=== PATIENT | female | born 1970 | race Caucasian/White ===

== ENCOUNTER 2020-08-07 13:43 | Outpatient (REF) | payer OTHER, SELFPAY ==
[2020-08-07 16:03] LABS: TSH reflex Free T4 1.18 mIU/mL (0.32-4.0)
[2020-08-08 03:59] LABS: Syphilis Screen Nonreactive (Nonreactive)
[2020-08-08 04:32] LABS: ~HepC Num1 0.06 S/CO (0.00-0.79); ~Hepatitis C Antibody Nonreactive (Nonreactive)
[2020-08-08 04:36] LABS: HBsAGNum1 0.11 S/CO (0.00-0.99); HIV AB/AG Nonreactive (Nonreactive); HIV Num 1 0.24 S/CO (0.00-0.99); Hepatitis B Surface Antigen Negative (Negative)
[2020-08-08 10:16] LABS: CT PCR NOT DETECTED (Not Detect.); NG PCR NOT DETECTED (Not Detect.)
[2020-08-08 10:26] LABS: Follicle Stimulating Hormone 20.5 mIU/mL
[2020-08-14 02:17] LABS: HPV 16 RNA NOT DETECTED (NOT DETECTED); HPV mRNA E6/E7 rflx Detected (Not Detected)
== END 2020-08-07 13:44 | disposition home or self-care (01) ==
LOC: HO.LAB 13:43
PROVIDERS: PCP Internal Medicine; Visit Provider Advanced Practice Midwife
DX: Z01.419 Encounter for gynecological examination (general) (routine) without abnormal findings (principal); Z87.42 Personal history of other diseases of the female genital tract; Z20.2 Contact with and (suspected) exposure to infections with a predominantly sexual mode of transmission
CPT/HCPCS: 83001; 84443; 86780; 86803; 87340; 87389; 87491; 87591; 87624; 87625; 88141; 88142

== ENCOUNTER 2020-09-04 14:11 | Outpatient (REF) | payer OTHER, SELFPAY | END 2020-09-04 14:12 | disposition home or self-care (01) | LOC: HO.LAB 14:11 | PROVIDERS: Visit Provider Internal Medicine | DX: Z20.828 Contact with and (suspected) exposure to other viral communicable diseases (principal) | CPT/HCPCS: C9803; U0003 ==

== ENCOUNTER 2020-09-16 15:46 | Outpatient (REF) | payer OTHER, SELFPAY ==
--- NOTE | 2020-09-16 | MM_ITS ---
EXAMINATION: MM SCREENING DIGITAL BREAST TOMOSYNTHESIS, BILATERAL CLINICAL INFORMATION: Screening. Asymptomatic. The lifetime risk of breast cancer based on the Tyrer-Cuzick Model is 7%. COMPARISON: Mammography: 05/03/2018, 08/17/2016 TECHNIQUE: Digital breast tomosynthesis is performed in both the craniocaudal and mediolateral oblique views along with computer-aided detection (CAD). Synthesized 2D images are generated from the tomosynthesis. FINDINGS: There are scattered areas of fibroglandular density (ACR BI-RADS breast composition Category b). There are no significant masses, abnormal calcifications, or other abnormalities. Parenchymal pattern is similar to prior study. No significant changes. MM/MM tomosynthesis screening BI IMPRESSION: No mammographic evidence of malignancy. ASSESSMENT: BI-RADS 1: Negative RECOMMENDATION: Routine annual mammography screening. This patient's information was entered into a reminder system with a target due date for their next mammogram.
== END 2020-09-16 15:47 | disposition home or self-care (01) ==
LOC: HO.MAMMO 15:46
PROVIDERS: PCP Internal Medicine; Visit Provider Advanced Practice Midwife
DX: Z12.31 Encounter for screening mammogram for malignant neoplasm of breast (principal)
CPT/HCPCS: 77063; 77067

== ENCOUNTER 2021-01-20 12:35 | Outpatient (REF) | payer OTHER, SELFPAY ==
[2021-01-20 13:49] LABS: HCG Quantitative < 2 mIU/mL
== END 2021-01-20 12:36 | disposition home or self-care (01) ==
LOC: HO.LAB 12:35
PROVIDERS: PCP Internal Medicine; Visit Provider Internal Medicine
DX: N92.6 Irregular menstruation, unspecified (principal)
CPT/HCPCS: 36415; 84702

== ENCOUNTER 2021-02-10 11:07 | Outpatient (REF) | payer OTHER, SELFPAY ==
--- NOTE | ~2021-02-10 | XR_ITS ---
EXAMINATION: XR SACRUM AND COCCYX CLINICAL INFORMATION: Sacrococcygeal disorder. COMPARISON: None TECHNIQUE: 2 views of the sacrum and 2 views of the coccyx were obtained. FINDINGS: There is normal symmetrical SI joint space with sclerosis of right SI joint iliac side. There is no visible fracture, dislocation or lytic process in the sacrum and/or coccyx. There is mild anterior angulation coccyx, likely old. No lytic or sclerotic process involving the sacrum and coccyx. The prevertebral and posterior portable vertebral soft tissues are normal. XR/XR sacrum coccyx min 2V IMPRESSION: Mild sclerosis of the right SI joint suggesting sacroiliitis. Unremarkable sacrum and coccyx performed.
[2021-02-10 12:25] LABS: Alanine Aminotransferase 25 U/L (0-31); Alkaline Phosphatase 111 U/L (39-117); Anion Gap 13 (12-20); Aspartate Amino Transferase 19 U/L (5-31); Bilirubin Total 0.5 mg/dL (0.0-1.0); Blood Urea Nitrogen 16 mg/dL (9-16); Calcium 9.3 mg/dL (8.4-10.2); Carbon Dioxide 26 mmol/L (22-29); Chloride 104 mmol/L (96-108); Cholesterol 172 mg/dL; Estimated Glomerular Filt Rate > 60; Glucose Fasting 102 mg/dL (60-99); HDL Cholesterol 43 mg/dL; LDL Cholesterol Calculated 53 mg/dl; Potassium 4.2 mmol/L (3.3-5.1); Sodium 139 mmol/L (135-145); Total Protein 7.1 g/dL (6.5-8.0); Triglycerides 383 mg/dL
== END 2021-02-10 11:08 | disposition home or self-care (01) ==
LOC: HO.LAB 11:07
PROVIDERS: PCP Internal Medicine; Visit Provider Internal Medicine
DX: M53.3 Sacrococcygeal disorders, not elsewhere classified (principal); E78.5 Hyperlipidemia, unspecified; E66.9 Obesity, unspecified
CPT/HCPCS: 36415; 72220; 80053; 80061

== ENCOUNTER 2021-08-10 13:52 | Outpatient (REF) | payer OTHER, SELFPAY ==
[2021-08-11 01:29] LABS: CT PCR NOT DETECTED (Not Detect.); NG PCR NOT DETECTED (Not Detect.)
[2021-08-14 23:20] LABS: HPV 16 RNA NOT DETECTED (NOT DETECTED); HPV mRNA E6/E7 rflx Detected (Not Detected)
== END 2021-08-10 13:53 | disposition home or self-care (01) ==
LOC: HO.LAB 13:52
PROVIDERS: PCP Internal Medicine; Visit Provider Advanced Practice Midwife
DX: Z01.419 Encounter for gynecological examination (general) (routine) without abnormal findings (principal); Z87.42 Personal history of other diseases of the female genital tract; Z20.2 Contact with and (suspected) exposure to infections with a predominantly sexual mode of transmission
CPT/HCPCS: 87491; 87591; 87624; 87625; 88142

== ENCOUNTER 2021-10-01 11:40 | Outpatient (REF) | payer OTHER, SELFPAY | END 2021-10-01 11:41 | disposition home or self-care (01) | LOC: HO.LAB 11:40 | PROVIDERS: PCP Internal Medicine; Visit Provider Obstetrics & Gynecology | DX: B97.7 Papillomavirus as the cause of diseases classified elsewhere (principal); Z87.42 Personal history of other diseases of the female genital tract | CPT/HCPCS: 57454; 81025; 88305 ==

== ENCOUNTER → 2021-10-22 09:00 | Outpatient (BNVA) | payer OTHER, SELFPAY | PROVIDERS: PCP Internal Medicine; Visit Provider Obstetrics & Gynecology ==

== ENCOUNTER 2021-10-27 12:39 | Outpatient (REF) | payer OTHER, SELFPAY ==
--- NOTE | ~2021-10-27 | MM_ITS ---
EXAMINATION: MM SCREENING DIGITAL BREAST TOMOSYNTHESIS, BILATERAL CLINICAL INFORMATION: Screening. Asymptomatic. The lifetime risk of breast cancer based on the Tyrer-Cuzick Model is 7%. COMPARISON: Mammography: 09/16/2020, 05/03/2018, 08/17/2016 TECHNIQUE: Digital breast tomosynthesis is performed in both the craniocaudal and mediolateral oblique views along with computer-aided detection (CAD). Synthesized 2D images are generated from the tomosynthesis. Additional bilateral MLO views are provided. FINDINGS: There are scattered areas of fibroglandular density (ACR BI-RADS breast composition Category b). There are no significant masses, abnormal calcifications, or other abnormalities. Breast tissue composition borders on predominantly fatty. There are no significant changes. No developing density. MM/MM tomosynthesis screening BI IMPRESSION: No mammographic evidence of malignancy. ASSESSMENT: BI-RADS 1: Negative RECOMMENDATION: Routine annual mammography screening. This patient's information was entered into a reminder system with a target due date for their next mammogram.
== END 2021-10-27 12:40 | disposition home or self-care (01) ==
LOC: HO.MAMMO 12:39
PROVIDERS: PCP Internal Medicine; Visit Provider Advanced Practice Midwife
DX: Z12.31 Encounter for screening mammogram for malignant neoplasm of breast (principal)
CPT/HCPCS: 77063; 77067

== ENCOUNTER → 2021-11-10 12:53 | Outpatient (BNVA) | payer OTHER, SELFPAY | PROVIDERS: PCP Internal Medicine; Visit Provider Obstetrics & Gynecology | DX: N87.0 Mild cervical dysplasia (principal) | CPT/HCPCS: 99212 ==

== ENCOUNTER 2021-11-20 08:54 | Day surgery (SDC) | payer OTHER, SELFPAY ==
--- NOTE | 2021-11-19 11:02 | HO.ANESPROP2 ---
Documented by User: Mile Pitts NP 11/19/21 11:02 HPI - Anesthesia Eval Consult details Narrative: 50yo F for LEEP PMFSH Active Problems Active Problems: All Active Problems (Updated 11/03/21 @ 10:30 by Rayne Koo MD) Skin tag (Acute) Mild recurrent major depression (Acute) Physical exam (Acute) Dysplasia of cervix, low grade (CALEB 1) (Acute) HPV in female (Acute) Sacroiliitis (Acute) Obese (Acute) Sacral pain (Acute) Potential exposure to STD (Acute) History of abnormal cervical Pap smear (Acute) Well woman exam with routine gynecological exam (Acute) Past Medical History Medical History Back pain Constipation Depression Dysplasia of cervix, low grade (CALEB 1) GERD (gastroesophageal reflux disease) Mild recurrent major depression Obese Physical exam Sacral pain Sacroiliitis Shoulder bursitis Sinusitis Skin tag Family History Family History Father HTN (hypertension) Mother CVD (cardiovascular disease) Paternal Grandmother CVD (cardiovascular disease) Paternal Uncle Leukemia Sister In good health Son In good health Son In good health Daughter In good health Daughter In good health Surgical History Surgical History Hx of tubal ligation Social History Social History Housing: Apartment Alcohol intake: current Alcohol intake frequency: holidays/special occasions only Alcohol type: hard liquor Patient Tobacco Use Status: Never used Tobacco Tobacco use type: Cigarette Years Smoked: 1 year e-Cigarette/Vaping Use: Never Used Second Hand Smoke Exposure: No Are you DNR?: No Advance Directives: No Advance Directives Information Provided: Yes Recently lost weight without trying: No service: No Current occupational status: unemployed Gender identity: Female Meds Allergies Allergy/AdvReac Type Severity Reaction Status Date / Time aspirin [ASPIRIN] Allergy Intermediate SWELLING Verified 11/13/21 14:03 Exam Exam Date and Time: November 19, 2021 1102 Assessment and Plan Assessment Anesthesia Assessment: Chart Reviewed Documented by User: Filemon Krueger MD 11/20/21 09:28 [facility] Past Medical History Medical History Back pain Constipation Depression Dysplasia of cervix, low grade (CALEB 1) GERD (gastroesophageal reflux disease) Mild recurrent major depression Obese Physical exam Sacral pain Sacroiliitis Shoulder bursitis Sinusitis Skin tag Family History Family History Father HTN (hypertension) Mother CVD (cardiovascular disease) Paternal Grandmother CVD (cardiovascular disease) Paternal Uncle Leukemia Sister In good health Son In good health Son In good health Daughter In good health Daughter In good health Family history of problems with anesthesia: No Surgical History Surgical History Hx of tubal ligation History of Problems with Anesthesia: No Social History Social History Housing: Apartment Alcohol intake: current Alcohol intake frequency: holidays/special occasions only Alcohol type: hard liquor Patient Tobacco Use Status: Never used Tobacco Tobacco use type: Cigarette Years Smoked: 1 year e-Cigarette/Vaping Use: Never Used Second Hand Smoke Exposure: No Are you DNR?: No Advance Directives: No Advance Directives Information Provided: Yes Recently lost weight without trying: No service: No Current occupational status: unemployed Gender identity: Female Meds Allergies Allergy/AdvReac Type Severity Reaction Status Date / Time aspirin [ASPIRIN] Allergy Intermediate SWELLING Verified 11/13/21 14:03 Exam Airway Mallampati Class: III TM Dist: >3cm Neck ROM: Full Assessment and Plan Assessment Anesthesia Assessment: Anesthesia Plan Discussed Final Anesthetic Review Family History of Problems with Anesthesia: No History of Problems with Anesthesia: No NPO: Yes ASA Class: II Final Preanesthetic Review: No Changes in Pt Med Stat, Meds/Allgs Chart Reviewed, Consent Obtained/Reviewed and Anes Risks/Benef Reviewed Patient Risk: Intermediate Procedure Risk: Low Anesthetic Plan Anesthetic Plan: GA Disposition: Standard PACU
[2021-11-20] VITALS (7 sets, daily range): BP systolic 125–135; BP diastolic 68–81; PULSE 72–98; RESP 16–20; TEMP 36.1–36.4; O2SAT 97–100; BMI 34.6
[2021-11-20 09:20] LABS: UPreg QC Valid YES; Urine Pregnancy NEGATIVE (NEGATIVE)
[2021-11-20] MEDS: Lactated Ringers 1,000 ML 100 ML IVCONT (09:24)
--- NOTE | 2021-11-20 10:08 | MHC.SHP ---
Pre-Procedural Eval Section A Date of Service: 11/20/21 Section B Chief Complaint: C1N1 Allergies: Allergies Allergy/AdvReac Type Severity Reaction Status Date / Time aspirin [ASPIRIN] Allergy Intermediate SWELLING Verified 11/13/21 14:03 Plan I have reviewed the history and physical and performed a pertinent physical examination on my patient. No changes have occurred unless specified.
--- NOTE | 2021-11-20 10:32 | P.CONAN_ITS ---
[facility] Active Problems Active Problems: All Active Problems (Updated 11/03/21 @ 10:30 by Rayne Koo MD) Skin tag (Acute) Mild recurrent major depression (Acute) Physical exam (Acute) Dysplasia of cervix, low grade (CALEB 1) (Acute) HPV in female (Acute) Sacroiliitis (Acute) Obese (Acute) Sacral pain (Acute) Potential exposure to STD (Acute) History of abnormal cervical Pap smear (Acute) Well woman exam with routine gynecological exam (Acute) Past Medical History Medical History Back pain Constipation Depression Dysplasia of cervix, low grade (CALEB 1) GERD (gastroesophageal reflux disease) Mild recurrent major depression Obese Physical exam Sacral pain Sacroiliitis Shoulder bursitis Sinusitis Skin tag Family History Family History Father HTN (hypertension) Mother CVD (cardiovascular disease) Paternal Grandmother CVD (cardiovascular disease) Paternal Uncle Leukemia Sister In good health Son In good health Son In good health Daughter In good health Daughter In good health Family history of problems with anesthesia: No Surgical History Surgical History Hx of tubal ligation History of Problems with Anesthesia: No Social History Social History Housing: Apartment Alcohol intake: current Alcohol intake frequency: holidays/special occasions only Alcohol type: hard liquor Patient Tobacco Use Status: Never used Tobacco Tobacco use type: Cigarette Years Smoked: 1 year e-Cigarette/Vaping Use: Never Used Second Hand Smoke Exposure: No Are you DNR?: No Advance Directives: No Advance Directives Information Provided: Yes Recently lost weight without trying: No service: No Current occupational status: unemployed Gender identity: Female Meds Allergies Allergy/AdvReac Type Severity Reaction Status Date / Time aspirin [ASPIRIN] Allergy Intermediate SWELLING Verified 11/13/21 14:03 Active Medications: Current Medications Fentanyl (Fentanyl Citrate/Pf 100 Mcg/2 Ml Vial) 50 mcg IVPUSH Q5M PRN; Protocol PRN Reason: Pain, Severe (Pain Scale 7-10) Lactated Ringer's (Lr) 1,000 mls @ 100 mls/hr IVCONT .Q10H PRIYANKA Last Admin: 11/20/21 09:24 Dose: 100 mls/hr Documented by: Promethazine HCl 12.5 mg/ (Sodium Chloride) 50.5 mls @ 202 mls/hr IV ONCE PRN PRN Reason: Nausea and Vomiting Ondansetron HCl (Ondansetron Hcl 4 Mg/2 Ml Vial) 4 mg IVPUSH ONCE PRN PRN Reason: Nausea and Vomiting Oxycodone HCl (Oxycodone Hcl Immed Release 5 Mg Tablet) 5 mg PO ONCE PRN PRN Reason: Pain, Severe (Pain Scale 7-10) Exam Exam Date and Time: November 20, 2021 1032 Height,Weight and Vital Signs: Height 4 ft 9 in Weight 72.575 kg Last Vital Signs Temp 97 F 11/20/21 09:02 Pulse 72 11/20/21 09:02 Resp 18 11/20/21 09:02 BP 129/72 11/20/21 09:02 Pulse Ox 97 11/20/21 09:02 Pertinent Lab Results Pertinent Lab Results: Laboratory Tests 11/20/21 09:10 Urine Test NEGATIVE Airway Mallampati Class: II TM Dist: >3cm Neck ROM: Full Assessment and Plan Assessment Anesthesia Assessment: Anesthesia Plan Discussed, Smoking Cess. Discussed and Chart Reviewed Final Anesthetic Review Family History of Problems with Anesthesia: No History of Problems with Anesthesia: No NPO: Yes ASA Class: II Final Preanesthetic Review: No Changes in Pt Med Stat, Meds/Allgs Chart Reviewed, Consent Obtained/Reviewed and Anes Risks/Benef Reviewed Patient Risk: Intermediate Procedure Risk: Low Anesthetic Plan Anesthetic Plan: GA Disposition: Standard PACU
--- NOTE | 2021-11-20 10:57 | PM.OP ---
Brief Operative Note Date of Service: 11/20/21 Pre-op diagnosis: Persistent CALEB 1 with negative ECC Post-op diagnosis: same Procedure: LEEP Surgeon: Bari Castillo MD Anesthesia: local and other (Paracervical block) Was an Sports Marketing Coordinator used for this Procedure?: No Estimated blood loss (mL): 0 Pathology: other (Ant+post Cerv lip) Condition: stable Disposition: other (Home)
--- NOTE | 2021-11-20 10:58 | W.PM.OPN ---
Operative Note Operative Note Date of Service: 11/20/21 Narrative: Preop diagnosis: Persistent CALEB 1 with negative ECC Operation: LEEP Post op diagnosis: same Anesthesia: paracervical block, mac Complications: none Pathology: Anterior and Posterior cervical lip QBL: minimal Procedure: The patient was put in the dorsal lithotomy position, was prepped and draped in the usual sterile fashion. A sterile speculum was inserted inside the patient vagina. Using Lugol solution the cervix with Dyed with Lugol solution to identifiy the abnormal demarcating line. 10 cc of Marcaine0.5% with epinephrine were given at 2,4 , 8, and 10 o'clock. Using a medium-size loop wire, the anterior cervical lip was excised followed by the posterior cervical lip . Hemostasis was assured using cautery and Monsel solution. All instruments were taken out of the patient's vaginal cavity. the patient tolerated the procedure well and was discharged home with the following instructions: call if temperature is above 100.4, vaginal bleeding, abdominal pain or nausea or vomiting. Follow-up in the office in 2 weeks for postop visit
== END 2021-11-20 12:27 | disposition home or self-care (01) ==
PROVIDERS: PCP Internal Medicine; Visit Provider Obstetrics & Gynecology
PROC: 0UBC7ZZ Excision of Cervix, Via Natural or Artificial Opening (ICD-10-PCS; CPT 57522; principal; 2021-11-20 10:30)
DX: N87.0 Mild cervical dysplasia (principal); F33.0 Major depressive disorder, recurrent, mild; Z79.899 Other long term (current) drug therapy; Z98.51 Tubal ligation status; Z88.8 Allergy status to other drugs, medicaments and biological substances; Z87.891 Personal history of nicotine dependence
CPT/HCPCS: 57522; 81025; 88307; J1100; J2250; J2405; J3010

== ENCOUNTER → 2021-12-07 11:45 | Outpatient (BNVA) | payer OTHER, SELFPAY | PROVIDERS: Visit Provider Obstetrics & Gynecology ==

== ENCOUNTER → 2022-11-16 08:48 | Outpatient (BNVA) | payer OTHER, SELFPAY | PROVIDERS: PCP Internal Medicine; Visit Provider Physician Assistant Surgical | DX: Z13.89 Encounter for screening for other disorder (principal) ==

== ENCOUNTER → 2023-01-03 10:17 | Outpatient (BNVA) | payer OTHER, SELFPAY | PROVIDERS: PCP Internal Medicine; Visit Provider Internal Medicine | DX: Z12.11 Encounter for screening for malignant neoplasm of colon (principal) | CPT/HCPCS: 99202 ==

== ENCOUNTER 2023-03-14 10:18 | Outpatient (REF) | payer OTHER, SELFPAY ==
[2023-03-14 10:51] LABS: MANUAL DIFF FLAG NO
[2023-03-14 11:59] LABS: Basophils Percent Auto 0.6 % (0-2); Eosinophils Absolute Auto 0.5 X10*3/uL (0.0-0.4); Eosinophils Percent Auto 7.2 % (0-4); Hematocrit 39.7 % (37.0-47.0); Hemoglobin 13.1 g/dl (12.0-16.0); Imm Gran Abs Auto 0.03 X10*3/uL (0.00-0.03); Imm Gran Pct Auto 0.4 % (0.0-0.4); Lymphocytes Percent Auto 27.9 % (20-40); Mean Corpuscular Hemoglobin 29.6 pg (27.0-33.0); Mean Corpuscular Volume 89.8 fL (80.0-98.0); Mean Platelet Volume 11.4 fL (9.4-12.3); Monocytes Absolute Auto 0.7 X10*3/uL (0.1-1.2); Monocytes Percent Auto 10.2 % (2-11); Neutrophils Absolute Auto 3.8 x10*3/uL (2.0-8.3); Neutrophils Percent Auto 53.7 % (45-73); Platelet Count 213 X10*3/uL (160-400); Red Blood Count 4.42 X10*6/uL (4.20-5.50); Red Cell Distribution Width 12.1 % (11.0-16.0)
[2023-03-14 12:46] LABS: Alanine Aminotransferase 25 U/L (0-31); Alkaline Phosphatase 120 U/L (39-117); Anion Gap 14 (12-20); Aspartate Amino Transferase 22 U/L (5-31); Bilirubin Total 0.4 mg/dL (0.0-1.0); Blood Urea Nitrogen 20 mg/dL (9-16); Calcium 9.5 mg/dL (8.4-10.2); Carbon Dioxide 27 mmol/L (22-29); Chloride 106 mmol/L (96-108); Cholesterol 173 mg/dL; Estimated Glomerular Filt Rate > 60; Glucose Fasting 113 mg/dL (60-99); HDL Cholesterol 38 mg/dL; Potassium 4.1 mmol/L (3.3-5.1); Sodium 143 mmol/L (135-145); Total Protein 7.2 g/dL (6.5-8.0); Triglycerides 489 mg/dL
[2023-03-14 13:17] LABS: Folate 10.6 ng/mL (> or = 4.0); Thyroid Stimulating Hormone 1.34 uIU/mL (0.32-4.0); Vitamin B12 244 pg/mL (200-900); Vitamin D 25-OH Total 24.6 ng/mL (>30)
== END 2023-03-14 10:19 | disposition home or self-care (01) ==
LOC: HO.LAB 10:18
PROVIDERS: PCP Internal Medicine; Visit Provider Internal Medicine
DX: E66.9 Obesity, unspecified (principal); Z68.37 Body mass index [BMI] 37.0-37.9, adult; E53.8 Deficiency of other specified B group vitamins; E55.9 Vitamin D deficiency, unspecified; D64.9 Anemia, unspecified; E78.5 Hyperlipidemia, unspecified
CPT/HCPCS: 36415; 80053; 80061; 82306; 82607; 82746; 84443; 85025

== ENCOUNTER 2023-03-18 15:03 | Outpatient (REF) | payer OTHER, SELFPAY ==
--- NOTE | ~2023-03-18 | MM_ITS ---
EXAMINATION: MM SCREENING DIGITAL BREAST TOMOSYNTHESIS, BILATERAL CLINICAL INFORMATION: Screening. Asymptomatic. The lifetime risk of breast cancer based on the Tyrer-Cuzick Model is 7%. COMPARISON: Mammography: 10/27/2021, 09/16/2020, 05/03/2018 TECHNIQUE: Digital breast tomosynthesis is performed in both the craniocaudal and mediolateral oblique views along with computer-aided detection (CAD). Synthesized 2D images are generated from the tomosynthesis. Additional left CC view is provided. FINDINGS: There are scattered areas of fibroglandular density (ACR BI-RADS breast composition Category b). There are no significant masses, abnormal calcifications, or other abnormalities. Parenchymal pattern is similar to prior studies. There is no developing density or architectural abnormality. The axilla and skin contours are unremarkable. No significant changes. MM/MM tomosynthesis screening BI IMPRESSION: No mammographic evidence of malignancy. ASSESSMENT: BI-RADS 1: Negative RECOMMENDATION: Routine annual mammography screening. This patient's information was entered into a reminder system with a target due date for their next mammogram.
== END 2023-03-18 15:04 | disposition home or self-care (01) ==
LOC: HO.MAMMO 15:03
PROVIDERS: PCP Internal Medicine; Visit Provider Internal Medicine
DX: Z12.31 Encounter for screening mammogram for malignant neoplasm of breast (principal)
CPT/HCPCS: 77063; 77067

== ENCOUNTER 2023-06-01 15:34 | Outpatient (AMB) | payer OTHER, SELFPAY ==
--- NOTE | 2023-06-01 15:38 | MHC.PC.OV ---
Vital Signs 06/01/23 15:39 Height 4 ft 9 in Weight 175 lb BMI 37.9 BP 136/82 Blood Pressure Location Lt brachial Position Sitting Intake Visit Reasons: depression Intake Note: Patient here for a follow up depression Contact Lens Flashing Puncher Required: No Accompanied by: Self / Same As Patient Allergies aspirin [ASPIRIN] Allergy (Intermediate, Verified 06/01/23 15:53) SWELLING Medication List - Last Reconciled 06/01/23 by Rayne Koo MD bupropion HCl 150 mg PO QAM 90 days cyclobenzaprine 10 mg PO TID 30 days ibuprofen 800 mg PO TID 30 days loratadine 10 mg PO DAILY 90 days Tobacco use date assessed: 11/08/22 Dental Screening Dental Screen Date: 06/01/23 Did you have a dental visit in the last 12 months?: No Did you have a dental problem in the last 6 months where you did not have access to dental care?: No Was dental information given to patient?: Patient has dentist HPI HPI Comments History of Present Illness Details This is a 52-year-old female with mild recurrent major depression, hypertriglyceridemia, impaired glucose tolerance and constipation that complains of chest pain that happens on exertion. Depression stable with bupropion. Triglycerides elevated and I will start her on fenofibrate. Fasting blood glucose elevated and was advised to low-carbohydrate diet. Constipation stable with high-fiber diet. Will order EKG for chest pain located in the left side of the chest that is pressure-like in quality and associated with activity. No associated symptom. [facility] Medical History (Updated 06/01/23 @ 16:20 by Rayne Koo MD) Back pain Constipation Depression Dysplasia of cervix, low grade (CALEB 1) GERD (gastroesophageal reflux disease) Headache Mild recurrent major depression Obese Physical exam Sacral pain Sacroiliitis Seasonal allergic rhinitis due to pollen Shoulder bursitis Sinusitis Skin tag Surgical History History of tubal ligation Hx of tubal ligation Family History Father No problems noted. Mother CVD (cardiovascular disease) Paternal Grandmother CVD (cardiovascular disease) Paternal Uncle Leukemia Sister In good health Son In good health Son In good health Daughter In good health Daughter In good health Father Diabetes HTN (hypertension) Mother CVD (cardiovascular disease) Paternal Uncle Leukemia Paternal Grandmother CVD (cardiovascular disease) Maternal Grandmother No problems noted. Maternal Grandfather No problems noted. Social History Housing: Apartment Alcohol intake: current Alcohol intake frequency: holidays/special occasions only Alcohol type: hard liquor Patient Tobacco Use Status: Never used Tobacco Years Smoked: 1 year e-Cigarette/Vaping Use: Never Used Second Hand Smoke Exposure: No service: No Current occupational status: unemployed Gender identity: Female Cognitive needs: No Hearing needs: No Vision needs: No Questionnaire Thrive Questionnaire Date Thrive assessed: 11/08/22 TUAN-7 AMB Questionnaire TUAN-7 Date TUAN - 7 assessed: 11/08/22 Source: Developed by Drs. Stan Franco, Rain Mckinney, Martinez Marte and colleagues, with an educational jody from [email or web address]. Review of Systems Const All systems reviewed & are unremarkable except as noted in HPI and below Eyes Reports no additional complaints, Denies change in vision and Denies other visual disturbances Card Denies chest pain at rest, Denies chest pain with activity, Denies edema, Denies irregular heart rhythm, Denies claudication, Denies dyspnea, Denies dyspnea on exertion, Denies orthopnea, Denies paroxysmal nocturnal dyspnea and Denies slow heart rate Resp Denies cough, Denies dyspnea and Denies dyspnea on exertion GI Denies abdominal pain, Denies change in bowel habits, Denies excessive flatus, Denies nausea and Denies vomiting Denies urinary incontinence, Denies urinary hesitancy and Denies urinary urgency Musc Denies abnormal gait, Denies atrophy, Denies deformity and Denies limited range of motion Skin/Breast Denies bleeding lesions, Denies changing lesions and Denies rash Neuro Denies abnormal gait and Denies lack of coordination Physical exam (Primary Care) Vital Signs: Last Vital Signs BP 136/82 06/01/23 15:39 BMI result Body Mass Index 37.9 Tobacco/Smoking Status: Tobacco use Status Tobacco use date assessed 11/08/22 06/01/23 15:44 Patient Tobacco Use Status Never used Tobacco 06/01/23 15:44 Tobacco use type 11/08/22 10:35 e-Cigarette/Vaping Use Never Used 06/01/23 15:44 Thrive Assessment: Date of Thrive Assessment Date Thrive assessed 11/08/22 06/01/23 15:44 Eyes General: appearance normal, both eyes and all related structures Eyelids: Yes eyelids normal Conjunctivae: conjunctivae normal Neck Neck: Yes normal visual inspection and Yes supple Resp Effort & Inspection: normal respiratory effort Auscultation: clear to auscultation bilaterally Cardio Jugular venous distension: no JVD Rate: regular rate Rhythm: regular rhythm Heart sounds: S1 normal heart sound present and S2 normal heart sound present Extrem General: Yes full ROM Assessment and Plan Assessment & Plan (1) Hypertriglyceridemia: Code(s): E78.1 - Pure hyperglyceridemia Plan: Start fenofibrate. (2) Mild recurrent major depression: Code(s): F33.0 - Major depressive disorder, recurrent, mild Plan: Continue bupropion. (3) Chest pain: Code(s): R07.9 - Chest pain, unspecified Plan: EKG ordered. (4) Impaired glucose tolerance: Code(s): R73.02 - Impaired glucose tolerance (oral) Plan: Start low-carbohydrate diet. Repeat fasting blood glucose. (5) Constipation: Code(s): K59.00 - Constipation, unspecified Plan: Continue high-fiber diet Orders: Orders ECG 12 lead EKG Today R07.9 - Chest pain, unspecified Comprehensive [place]. Panel Fast 5 Months E78.1 - Pure hyperglyceridemia Lipid Panel 5 Months E78.5 - Hyperlipidemia, unspecified Medications: New fenofibrate 54 mg PO DAILY 90 tabs 1RF 90 days E78.1 - Pure hyperglyceridemia Coding Level of Care Code Est Pt Level 4 (34177) Diagnoses Hypertriglyceridemia E78.1 Mild recurrent major depression F33.0 Chest pain R07.9 Impaired glucose tolerance R73.02 Constipation K59.00 Time Spent (min) 24
[2023-06-01 15:39] VITALS: BP 136/82; BMI 37.9
== END 2023-06-01 15:59 | disposition home or self-care (01) ==
PROVIDERS: PCP Internal Medicine; Visit Provider Internal Medicine
DX: E78.1 Pure hyperglyceridemia (principal); F33.0 Major depressive disorder, recurrent, mild; R07.9 Chest pain, unspecified; R73.02 Impaired glucose tolerance (oral); K59.00 Constipation, unspecified
CPT/HCPCS: 99214

== ENCOUNTER → 2023-07-12 14:07 | Outpatient (REF) | payer OTHER, SELFPAY | LOC: HO.CARD 14:07 | PROVIDERS: PCP Internal Medicine; Visit Provider Internal Medicine | DX: R07.9 Chest pain, unspecified (principal) | CPT/HCPCS: 93005 ==

== ENCOUNTER 2023-07-14 09:15 | Day surgery (SDC) | payer OTHER, SELFPAY ==
[2023-07-12 07:41] VITALS: BMI 37.9
--- NOTE | 2023-07-13 11:00 | HO.ANESPROP2 ---
HPI - Anesthesia Eval Consult details Narrative: 52yo F for Colonoscopy [facility] Active Problems Active Problems: All Active Problems (Updated 06/01/23 @ 16:20 by Rayne Koo MD) Impaired glucose tolerance (Acute) Chest pain (Acute) Hypertriglyceridemia (Acute) Class 2 obesity with body mass index (BMI) of 37.0 to 37.9 in adult (Acute) Screen for colon cancer (Acute) Dysplasia of cervix, low grade (CALEB 1) (Acute) HPV in female (Acute) Potential exposure to STD (Acute) History of abnormal cervical Pap smear (Acute) Well woman exam with routine gynecological exam (Acute) Constipation (Acute) Seasonal allergic rhinitis due to pollen (Acute) Headache (Acute) Skin tag (Acute) Mild recurrent major depression (Acute) Physical exam (Acute) Sacroiliitis (Acute) Obese (Acute) Sacral pain (Acute) Past Medical History Medical History (Updated 06/01/23 @ 16:20 by Rayne Koo MD) Seasonal allergic rhinitis due to pollen Headache Skin tag Mild recurrent major depression Physical exam Dysplasia of cervix, low grade (CALEB 1) Sacroiliitis Obese Sacral pain Shoulder bursitis Back pain GERD (gastroesophageal reflux disease) Constipation Depression Sinusitis Family History Family History Father No problems noted. Mother CVD (cardiovascular disease) Paternal Grandmother CVD (cardiovascular disease) Paternal Uncle Leukemia Sister In good health Son In good health Son In good health Daughter In good health Daughter In good health Father Diabetes HTN (hypertension) Mother CVD (cardiovascular disease) Paternal Uncle Leukemia Paternal Grandmother CVD (cardiovascular disease) Maternal Grandmother No problems noted. Maternal Grandfather No problems noted. Family history of problems with anesthesia: No Surgical History Surgical History (Updated 07/13/23 @ 10:45 by Latonya Fernandez) History of tubal ligation History of Problems with Anesthesia: No Social History Social History Housing: Apartment Alcohol intake: current Alcohol intake frequency: holidays/special occasions only Alcohol type: hard liquor Patient Tobacco Use Status: Never used Tobacco Years Smoked: 1 year e-Cigarette/Vaping Use: Never Used Second Hand Smoke Exposure: No service: No Current occupational status: unemployed Gender identity: Female Cognitive needs: No Hearing needs: No Vision needs: No Meds Allergies Allergy/AdvReac Type Severity Reaction Status Date / Time aspirin [ASPIRIN] Allergy Intermediate SWELLING Verified 06/01/23 15:53 Exam Exam Date and Time: July 13, 2023 1100 Height,Weight and Vital Signs: Height 4 ft 9 in Weight 79.379 kg Pertinent Lab Results Pertinent Lab Results: Laboratory Tests 03/14/23 10:50 WBC 7.0 Hgb 13.1 Hct 39.7 Plt Count 213 Sodium 143 Potassium 4.1 Chloride 106 Carbon Dioxide 27 BUN 20 H Creatinine 0.93 Narrative Narrative: EKG 07/2023 Vent. Rate : 072 BPM Atrial Rate : 072 BPM P-R Int : 144 ms QRS Dur : 086 ms QT Int : 406 ms P-R-T Axes : 048 000 044 degrees QTc Int : 444 ms Normal sinus rhythm Normal ECG When compared with ECG of 28-JUL-2016 14:35, No significant change was found Assessment and Plan Assessment Anesthesia Assessment: Chart Reviewed Final Anesthetic Review Family History of Problems with Anesthesia: No History of Problems with Anesthesia: No
[2023-07-14 10:03] VITALS: BP 121/83; PULSE 74; RESP 18; TEMP 36.5; O2SAT 99; BMI 36.8
--- NOTE | 2023-07-14 10:12 | HO.ANESPROP2 ---
[facility] Active Problems Active Problems: All Active Problems (Updated 06/01/23 @ 16:20 by Rayne Koo MD) Impaired glucose tolerance (Acute) Chest pain (Acute) Hypertriglyceridemia (Acute) Class 2 obesity with body mass index (BMI) of 37.0 to 37.9 in adult (Acute) Screen for colon cancer (Acute) Dysplasia of cervix, low grade (CALEB 1) (Acute) HPV in female (Acute) Potential exposure to STD (Acute) History of abnormal cervical Pap smear (Acute) Well woman exam with routine gynecological exam (Acute) Constipation (Acute) Seasonal allergic rhinitis due to pollen (Acute) Headache (Acute) Skin tag (Acute) Mild recurrent major depression (Acute) Physical exam (Acute) Sacroiliitis (Acute) Obese (Acute) Sacral pain (Acute) Past Medical History Medical History Seasonal allergic rhinitis due to pollen Headache Skin tag Mild recurrent major depression Physical exam Dysplasia of cervix, low grade (CALEB 1) Sacroiliitis Obese Sacral pain Shoulder bursitis Back pain GERD (gastroesophageal reflux disease) Constipation Depression Sinusitis Family History Family History Father No problems noted. Mother CVD (cardiovascular disease) Paternal Grandmother CVD (cardiovascular disease) Paternal Uncle Leukemia Sister In good health Son In good health Son In good health Daughter In good health Daughter In good health Father Diabetes HTN (hypertension) Mother CVD (cardiovascular disease) Paternal Uncle Leukemia Paternal Grandmother CVD (cardiovascular disease) Maternal Grandmother No problems noted. Maternal Grandfather No problems noted. Family history of problems with anesthesia: No Surgical History Surgical History History of tubal ligation History of Problems with Anesthesia: No Social History Social History Housing: Apartment Alcohol intake: current Alcohol intake frequency: holidays/special occasions only Alcohol type: hard liquor Patient Tobacco Use Status: Never used Tobacco Years Smoked: 1 year e-Cigarette/Vaping Use: Never Used Second Hand Smoke Exposure: No Advance Directives: No Advance Directives Information Provided: Yes service: No Current occupational status: unemployed Gender identity: Female Cognitive needs: No Hearing needs: No Vision needs: No Meds Allergies Allergy/AdvReac Type Severity Reaction Status Date / Time aspirin [ASPIRIN] Allergy Intermediate SWELLING Verified 06/01/23 15:53 Active Medications: Current Medications Lactated Ringer's (Lr) 1,000 mls @ 100 mls/hr IVCONT .Q10H PRIYANKA Exam Exam Date and Time: July 14, 2023 1012 Height,Weight and Vital Signs: Height 4 ft 9 in Weight 79.379 kg Airway Mallampati Class: III TM Dist: >3cm Neck ROM: Full Denture: Lower Heart: RRR Lungs: CTA Assessment and Plan Assessment Anesthesia Assessment: Anesthesia Plan Discussed Final Anesthetic Review Family History of Problems with Anesthesia: No History of Problems with Anesthesia: No ASA Class: III Final Preanesthetic Review: Meds/Allgs Chart Reviewed, Consent Obtained/Reviewed and Anes Risks/Benef Reviewed Patient Risk: Low Procedure Risk: Low Anesthetic Plan Anesthetic Plan: MAC: Disposition: Standard PACU
[2023-07-14] MEDS: Lactated Ringers 1,000 ML 100 ML IVCONT (10:27)
--- NOTE | 2023-07-14 10:57 | MHC.SHP ---
Pre-Procedural Eval Section A Date of Service: 07/14/23 Section B Chief Complaint: Encounter for screening for malignant neoplasm Details of Present Illness: Medical History Back pain Constipation Depression Dysplasia of cervix, low grade (CALEB 1) GERD (gastroesophageal reflux disease) Headache Mild recurrent major depression Obese Physical exam Sacral pain Sacroiliitis Seasonal allergic rhinitis due to pollen Shoulder bursitis Sinusitis Skin tag Surgical History History of tubal ligation Hx of tubal ligation Present Medications: see Short Stay Collaborative assessment Allergies: Allergies Allergy/AdvReac Type Severity Reaction Status Date / Time aspirin [ASPIRIN] Allergy Intermediate SWELLING Verified 06/01/23 15:53 Review of Systems Review of Systems Comment: Ten point ROS negative Exam Exam Comment: Gen appear: No acute distress HEENT: no icterus Chest: No overt resp distress Abd: soft, nontender, nondistended Psych: Stable affect, answering questions appropriately Neuro: A/Ox3 noted to move all extremities spontaneously Ext: no peripheral edema Plan I have reviewed the history and physical and performed a pertinent physical examination on my patient. No changes have occurred unless specified. Time Spent With Patient Time: Total time managing care of this patient today ____ minutes.
--- NOTE | 2023-07-14 12:42 | P.OP_ITS ---
Operative Note Operative Note Date of Service: 07/14/23 Narrative: Procedure: Colonoscopy Indication: Screening Endoscopist: Nena Jimenez MD Anesthesia Provider: Dr Lilian Coley Anesthesia type: MAC Instrument: Olympus [id number]-[id number] Consent: Indication, risks vs benefits, and alternatives were discussed with the patient who gave written informed consent to proceed. An panel assembler was utilized to assist with the consent. EKG, pulse, pulse oximetry and blood pressure were monitored throughout the procedure. Please see anesthesia flowsheet. Procedure: The patient was brought to the procedure room and placed in the left lateral decubitus position. IV medications were administered by the anesthesia provider in attendance. A digital rectal exam was performed which was normal. A distal attachment cap was affixed to the tip of the scope and the colonoscope was then inserted through the anus and advanced through the colon to the cecum at 80 cm,and terminal ileum. Mucosa was carefully examined under high definition white light as the instrument was slowly withdrawn in a retrograde panoramic fashion. Retroflexion was performed in rectum. The procedure was not difficult. There were no immediate obvious complications. The quality of the prep was BBPS: 2+3+2 = adequate Withdrawal time 12 minutes. Limitations: No limitations. Findings: Mucosa: Normal to cecum and terminal ileum. Protruding lesions: * 1 sessile polyp of size 5 mm in transverse colon. Cold snare polypectomy was performed. The polyp was completely removed and retrieved. * 1 sessile polyp of size 6 mm in descending colon. Cold snare polypectomy was performed. The polyp was completely removed and retrieved. * Large internal hemorrhoids without stigmata of recent bleeding. Excavated lesions: * Moderate diverticulosis of left sided colon. Impression: 1. Normal colon and terminal ileum mucosa 2. Total of 2 polyps removed 3. Diverticulosis 3. Internal hemorrhoids Recommendations: - Follow path results. - Repeat colonoscopy in 7-10 years if polyps are adenomas.
[2023-07-14 13:17] VITALS: BP 107/50; PULSE 92; RESP 16; TEMP 36.9; O2SAT 92
[2023-07-14 13:32] VITALS: BP 114/64; PULSE 89; RESP 16; O2SAT 96
[2023-07-14 13:47] VITALS: BP 127/68; PULSE 77; RESP 16; TEMP 36.4; O2SAT 100
== END 2023-07-14 14:38 | disposition home or self-care (01) ==
PROVIDERS: PCP Internal Medicine; Visit Provider Internal Medicine
PROC: 0DJD8ZZ Inspection of Lower Intestinal Tract, Via Natural or Artificial Opening Endoscopic (ICD-10-PCS; CPT 45378; principal; 2023-07-14 11:20)
DX: Z12.11 Encounter for screening for malignant neoplasm of colon (principal); D12.3 Benign neoplasm of transverse colon; D12.4 Benign neoplasm of descending colon; K57.30 Diverticulosis of large intestine without perforation or abscess without bleeding; K64.8 Other hemorrhoids; K59.00 Constipation, unspecified; K21.9 Gastro-esophageal reflux disease without esophagitis; J30.2 Other seasonal allergic rhinitis; Z88.8 Allergy status to other drugs, medicaments and biological substances
CPT/HCPCS: 45385; 88305

== ENCOUNTER → 2023-07-14 09:15 | Outpatient (BNV) | payer OTHER, SELFPAY | PROVIDERS: PCP Internal Medicine; Visit Provider Internal Medicine | DX: Z12.11 Encounter for screening for malignant neoplasm of colon (principal); D12.3 Benign neoplasm of transverse colon; D12.4 Benign neoplasm of descending colon; K64.8 Other hemorrhoids; K57.30 Diverticulosis of large intestine without perforation or abscess without bleeding | CPT/HCPCS: 45385 ==

== ENCOUNTER 2023-07-29 12:04 | Outpatient (AMB) | payer OTHER, SELFPAY ==
--- NOTE | 2023-07-29 12:41 | A.OFFVIS_ITS ---
Intake Vital Signs 07/29/23 12:43 Height 4 ft 8 in Weight 170 lb BMI 38.1 BP 137/73 Blood Pressure Location Lt brachial Position Sitting Pulse 66 Intake Visit Reasons: S/P [place]; Dr. Jimenez Intake Note: Patient follow up for Colonoscopy results Patient denies any GI issues. 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 01/03/23: Patient is at average risk of colon cancer due to no family history of colon cancer or colon polyps in first degree relatives. Patient does not have any other gastrointestinal symptoms to include abdominal pain, nausea, vomiting, diarrhea, blood in stool, weight loss. Patient due for updated labs. 07/14/23: [place] 1. Normal colon and terminal ileum mucos a 2. Total of 2 polyps removed 3. Diverticulosis 4. Internal hemorrhoids Path A. Colon, transverse, polyp: Tubular adenoma; negative for high-grade dysplasia and carcinoma. B. Colon, descending, polyps: Serrated polyps (3 pieces) with focal features suggesting sessile serrated lesion without dysplasia, and tubular adenomas (2 pieces); negative for high- grade dysplasia and carcinoma 07/29/23: Pt presents for a post colonoscopy follow up. Currently reports no gastrointe stinal issues. Correction to above report - pt had in fact 3 total polyps, 2 in descending colon. [place] findings and path reviewed. [facility] Medical History Seasonal allergic rhinitis due to pollen Headache Skin tag Mild recurrent major depression Physical exam Dysplasia of cervix, low grade (CALEB 1) Sacroiliitis Obese Sacral pain Shoulder bursitis Back pain GERD (gastroesophageal reflux disease) Constipation Depression Sinusitis Surgical History History of tubal ligation Family History Father No problems noted. Mother CVD (cardiovascular disease) Paternal Grandmother CVD (cardiovascular disease) Paternal Uncle Leukemia Sister In good health Son In good health Son In good health Daughter In good health Daughter In good health Father Diabetes HTN (hypertension) Mother CVD (cardiovascular disease) Paternal Uncle Leukemia Paternal Grandmother CVD (cardiovascular disease) Maternal Grandmother No problems noted. Maternal Grandfather No problems noted. Social History Housing: Apartment Alcohol intake: current Alcohol intake frequency: holidays/special occasions only Alcohol type: hard liquor Patient Tobacco Use Status: Never used Tobacco Years Smoked: 1 year e-Cigarette/Vaping Use: Never Used Second Hand Smoke Exposure: No service: No Current occupational status: unemployed Gender identity: Female Cognitive needs: No Hearing needs: No Vision needs: No Review of Systems Const All systems reviewed & are unremarkable except as noted in HPI and below Physical Exam Gen appear: NAD HEENT: nonicteric, no cervical lymphadenopathy Chest: CTA CVS: Regular S1/S2 Abd: soft, nontender, nondistended, bowel sounds + Ext: no peripheral edema Neuro: A/Ox3, noted to move all extremities spontaneously Psych: interacting appropriately Assessment & Plan Assessment & Plan (1) Personal history of colonic polyps: Code(s): Z86.010 - Personal history of colonic polyps Plan Reviewed findings with the pt. Will be due for a repeat colonoscopy in 3-5 years. Reminder set. Bulletin board updated in [facility]. Follow up in office PRN Coding Level of Care Code Est Pt Level 3 (94732) Diagnoses Personal history of colonic polyps Z86.010
[2023-07-29 12:43] VITALS: BP 137/73; PULSE 66; BMI 38.1
== END 2023-07-29 13:17 | disposition home or self-care (01) ==
PROVIDERS: PCP Internal Medicine; Visit Provider Internal Medicine
DX: Z86.010 Personal history of colon polyps (principal)
CPT/HCPCS: 99213

== ENCOUNTER → 2023-07-29 12:04 | Outpatient (BNVA) | payer OTHER, SELFPAY | PROVIDERS: PCP Internal Medicine; Visit Provider Internal Medicine | DX: Z86.010 Personal history of colon polyps (principal) | CPT/HCPCS: 99212 ==

== ENCOUNTER 2023-10-12 09:51 | Outpatient (AMB) | payer OTHER, SELFPAY ==
[2023-10-12 09:56] VITALS: BP 124/78; BMI 38.9
--- NOTE | 2023-10-12 09:56 | A.OFFVIS_ITS ---
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 She is doing well with no concerns. Planning to eat a healthy diet with calcium and vitamin D this year, and start to exercise. Currently sexually active. Denies any vaginal dryness or irritation. STI testing offered; she accepts. Last pap smear; S/P LEEP, CINI. She admits to episode of vaginal bleeding for 4 days in September, after 12 months of no menstrual cycles. Last mammogram; 2022. Colonoscopy is UTD. Denies any family history of breast, ovarian or colon cancer. [facility] Medical History Seasonal allergic rhinitis due to pollen Headache Skin tag Mild recurrent major depression Physical exam Dysplasia of cervix, low grade (CALEB 1) Sacroiliitis Obese Sacral pain Shoulder bursitis Back pain GERD (gastroesophageal reflux disease) Constipation Depression Sinusitis Surgical History History of tubal ligation Family History Father No problems noted. Mother CVD (cardiovascular disease) Paternal Grandmother CVD (cardiovascular disease) Paternal Uncle Leukemia Sister In good health Son In good health Son In good health Daughter In good health Daughter In good health Father Diabetes HTN (hypertension) Mother CVD (cardiovascular disease) Paternal Uncle Leukemia Paternal Grandmother CVD (cardiovascular disease) Maternal Grandmother No problems noted. Maternal Grandfather No problems noted. Social History Housing: Apartment Alcohol intake: current Alcohol intake frequency: holidays/special occasions only Alcohol type: hard liquor Patient Tobacco Use Status: Never used Tobacco Years Smoked: 1 year e-Cigarette/Vaping Use: Never Used Second Hand Smoke Exposure: No service: No Current occupational status: unemployed Gender identity: Female Cognitive needs: No Hearing needs: No Vision needs: No Female Reproductive History Menstrual Age of Menarche: 12 Duration of menses: 3-5 days Date of last menstrual period: 09/28/23 control method: permanent sterilization Total pregnancies: 4 Full term: 4 Number of Living Children: 4 Date of last pap smear: 08/11/21 (Endocervical componants +HPV) History of abnormal pap smear: Yes (2019 ASCUS +HPV) Date of Mammogram: 03/18/23 Review of Systems Const All systems reviewed & are unremarkable except as noted in HPI and below Reports as per HPI Eyes Reports no additional complaints ENT Reports no additional complaints Card Reports no additional complaints Resp Reports no additional complaints GI Reports as per HPI and Reports no additional complaints Reports as per HPI Musc Reports no additional complaints Skin/Breast Reports as per HPI Neuro Reports no additional complaints Psych Reports no additional complaints Endo Reports no additional complaints Valentino/Lymph Reports no additional complaints Aller/Immun Reports no additional complaints Physical Exam Vital Signs: Last Vital Signs BP 124/78 10/12/23 09:56 BMI result Body Mass Index 38.9 Const General: cooperative, healthy appearing, no acute distress, well developed and alert Orientation/consciousness: patient oriented x3 HEENT Head: Yes normal to inspection Eyes General: appearance normal, both eyes and all related structures Neck Neck: Yes normal visual inspection Thyroid: Thyroid normal Chest Chest palpation & inspection: normal inspection of the chest and other (no puckering, dimpling, peau de orange, retraction, discharge, masses) Breast/axilla inspection: normal inspection of the breasts Breast/axilla palpation: normal palpation of the breasts Resp Effort & Inspection: normal respiratory effort GI Inspection: Yes normal to inspection and Yes obesity Palpation (GI): Soft to palpation Rectal Exam - Female: deferred General: Yes bladder normal to palpation External Female Exam: normal external appearance and normal appearance of the urethra Speculum Exam - Vagina: normal appearance of the vagina, normal palpation and normal vaginal discharge Speculum Exam - Cervix: normal appearance of the cervix, normal palpation and Other cervical findings present (Post LEEP appearance) Bimanual exam- vagina & uterus: normal bimanual exam, normal palpation, uterine size normal, bladder normal to palpation, normal palpation and non-tender Bimanual Exam- Adnexa, other: no masses Skin General skin exam: no rashes or lesions noted Rashes: no rashes Neuro General: patient oriented x3 Cognition (Neuro): normal cognition Extrem General: Yes normal to inspection Psych Attitude: cooperative Thought process: Normal thought process present Assessment & Plan Assessment & Plan (1) History of abnormal cervical Pap smear: Code(s): Z87.42 - Personal history of other diseases of the female genital tract (2) Well woman exam with routine gynecological exam: Code(s): Z01.419 - Encounter for gynecological examination (general) (routine) without abnormal findings (3) PMB (postmenopausal bleeding): Code(s): N95.0 - Postmenopausal bleeding Plan Discussed: Current recommendations for pap smears per ASCCP guidelines. Breast awareness, periodic self breast exams and yearly mammogram. Maintain a healthy lifestyle, well balanced diet including Calcium 1,200 mg and Vitamin D 600 IU daily, and routine exercise. Use of condoms for STI if indicated. Contact the office with any postmenopausal bleeding. Planned a workup including ultrasound and endometrial biopsy. Anticipatory guidance for procedure reviewed including eating and drinking, taking OTC medication 1 hour before the procedure time. All of her questions and concerns were addressed to the best of my ability and shared decision making. She is agreeable to the plan of care. Ultrasound follow-up and EMB same-day visit to be scheduled today. RTO in 1 year for annual tobacco blender exam. This note is constructed using voice recognition software. While every effort has been made to ensure accuracy, coagulating bath operator errors may have been included. Orders: Orders Hepatitis B Core Antibody Today Z20.2 - Contact with and (suspected) exposure to infections with a predominantly sexual mode of transmission HIV Ab/Ag Today Z20.2 - Contact with and (suspected) exposure to infections with a predominantly sexual mode of transmission Hepatitis C Antibody Today Z20.2 - Contact with and (suspected) exposure to infections with a predominantly sexual mode of transmission Syphilis Screen Today Z20.2 - Contact with and (suspected) exposure to infections with a predominantly sexual mode of transmission US pelvic and transvaginal Today N95.0 - Postmenopausal bleeding Coding Level of Care Code Est Pt Prev Care 40-64y(01902) Diagnoses History of abnormal cervical Pap smear Z87.42 Well woman exam with routine gynecological exam Z01.419 PMB (postmenopausal bleeding) N95.0
== END 2023-10-12 10:54 | disposition home or self-care (01) ==
LOC: HO.HWS 09:51
PROVIDERS: PCP Internal Medicine; Visit Provider Advanced Practice Midwife
DX: Z01.419 Encounter for gynecological examination (general) (routine) without abnormal findings (principal); N95.0 Postmenopausal bleeding; Z87.42 Personal history of other diseases of the female genital tract
CPT/HCPCS: 99396

== ENCOUNTER 2023-10-12 09:51 | Outpatient (REF) | payer OTHER, SELFPAY ==
[2023-10-12 13:08] LABS: HBc Num1 0.13 S/CO (0.00-0.79); HIV AB/AG Nonreactive (Nonreactive); HIV Num 1 0.05 S/CO (0.00-0.99); Hepatitis B Core Antibody Nonreactive (Nonreactive); ~HepC Num1 0.08 S/CO (0.00-0.79); ~Hepatitis C Antibody Nonreactive (Nonreactive)
[2023-10-12 13:09] LABS: Syphilis Screen Nonreactive (Nonreactive)
[2023-10-12 16:04] LABS: CT PCR NOT DETECTED (Not Detect.); NG PCR NOT DETECTED (Not Detect.)
[2023-10-18 04:09] LABS: HPV 16 RNA NOT DETECTED (NOT DETECTED); HPV mRNA E6/E7 rflx Detected (Not Detected)
== END 2023-10-12 09:52 | disposition home or self-care (01) ==
LOC: HO.LAB 09:51
PROVIDERS: PCP Internal Medicine; Visit Provider Advanced Practice Midwife
DX: Z01.419 Encounter for gynecological examination (general) (routine) without abnormal findings (principal); Z11.51 Encounter for screening for human papillomavirus (HPV); N95.0 Postmenopausal bleeding; Z20.2 Contact with and (suspected) exposure to infections with a predominantly sexual mode of transmission; Z87.42 Personal history of other diseases of the female genital tract
CPT/HCPCS: 0353U; 86704; 86780; 86803; 87389; 87624; 87625; 88142; 99396

== ENCOUNTER 2023-11-10 10:37 | Outpatient (REF) | payer OTHER, SELFPAY ==
--- NOTE | ~2023-11-10 | US_ITS ---
EXAMINATION: US PELVIS CLINICAL INFORMATION: Postmenopausal bleeding. COMPARISON: Pelvic ultrasound dated 05/03/2018. TECHNIQUE: Ultrasound of the pelvis is performed using both transabdominal and transvaginal transducers along with Doppler. Transvaginal imaging is performed due to inadequate visualization transabdominally. FINDINGS: Uterus: The uterus is anteverted and measures 8.8 x 3.3 x 4.5 cm. The uterus is anteverted and anteflexed. The double wall endometrial thickness is 2 mm. The uterus is smooth in contour and has normal myometrial echogenicity. No visible fibroid. Complex Nabothian cysts are seen within the cervix. Adnexa: Both ovaries are visualized. There is normal color flow to the adnexa. There is no ovarian torsion. There is no pelvic ascites or fluid collection. Right ovary measures 2.7 x 1.3 x 1.2 cm, volume 2.2 mL. Left ovary measures 2.7 x 1.7 x 1.9 cm, volume 4.5 mL. US/US pelvic and transvaginal IMPRESSION: Complex Nabothian cysts are seen. The examination is otherwise unremarkable.
== END 2023-11-10 10:38 | disposition home or self-care (01) ==
LOC: HO.US 10:37
PROVIDERS: PCP Internal Medicine; Visit Provider Advanced Practice Midwife
DX: N95.0 Postmenopausal bleeding (principal)
CPT/HCPCS: 76830; 76856

== ENCOUNTER 2023-11-14 08:44 | Outpatient (AMB) | payer OTHER, SELFPAY ==
--- NOTE | 2023-11-14 08:47 | MHC.OFFVIS ---
Intake Vital Signs 11/14/23 08:55 Height 4 ft 9 in Weight 180 lb BMI 38.9 BP 110/70 Intake Visit Reasons: Colposcopy Teacher Selection Specialist Required: Yes Teacher Selection Specialist Language: Electrician Office Name: [facility] [id number] Information Interpreted: non-clinical & clinical Technical Training Coordinator: Technical Training Coordinator Present (Mirna) Allergies aspirin [ASPIRIN] Allergy (Intermediate, Verified 11/14/23 08:55) SWELLING Is last menstrual period known: Yes Last menstrual period: 09/28/23 HPI HPI Comments History of Present Illness Details Presenting for colposcopy, Pap smear negative/HPV positive [facility] Medical History Seasonal allergic rhinitis due to pollen Headache Skin tag Mild recurrent major depression Physical exam Dysplasia of cervix, low grade (CALEB 1) Sacroiliitis Obese Sacral pain Shoulder bursitis Back pain GERD (gastroesophageal reflux disease) Constipation Depression Sinusitis Surgical History History of tubal ligation Family History Father No problems noted. Mother CVD (cardiovascular disease) Paternal Grandmother CVD (cardiovascular disease) Paternal Uncle Leukemia Sister In good health Son In good health Son In good health Daughter In good health Daughter In good health Father Diabetes HTN (hypertension) Mother CVD (cardiovascular disease) Paternal Uncle Leukemia Paternal Grandmother CVD (cardiovascular disease) Maternal Grandmother No problems noted. Maternal Grandfather No problems noted. Social History Housing: Apartment Alcohol intake: current Alcohol intake frequency: holidays/special occasions only Alcohol type: hard liquor Patient Tobacco Use Status: Never used Tobacco Years Smoked: 1 year e-Cigarette/Vaping Use: Never Used Second Hand Smoke Exposure: No service: No Current occupational status: unemployed Gender identity: Female Cognitive needs: No Hearing needs: No Vision needs: No Female Reproductive History Menstrual Age of Menarche: 12 Date of last menstrual period: 09/28/23 Review of Systems Const All systems reviewed & are unremarkable except as noted in HPI and below Reports as per HPI and Reports no additional complaints GI Reports no additional complaints Reports no additional complaints Physical Exam Vital Signs: Last Vital Signs BP 110/70 11/14/23 08:55 BMI result Body Mass Index 38.9 Office Procedures Colposcopy Before the procedure was started discussed with the patient the procedure, alternatives & all the risks associated with the procedure (bleeding, infection, injury to vagina, bladder, vessels, possible need for transfusion with all its risks) then patient signed the consent UPT done in the office & negative Pap smear = neg/ hpv positive Speculum inserted, acetic acid used Colposcopy done Transformation zone seen, no acetowhite lesions identified, no cervical biopsies taken, ECC done afterwards. Vaginoscopy of the upper vagina showed no evidence of any aceto-white lesions Monsel solution used for hemostasis. The patient tolerated well . At the end the patient was instructed to call if temp>100.4, abdominal pain, n/v, bleeding; The patient was given the following instructions: nothing per vagina, no intercourse or bath tub use. All questions answered the patient verbalized understanding. Instructed the patient to make an appointment in 2 weeks for follow-up This note was generated with a voice recognition program. Some errors may have been overlooked during the review of this note. Sometimes these errors may affect the content or meaning of a given sentence. [id number] of cervix including upper vagina with ECC Procedure code (CPT) selection complete Results AMB Test Urine AMB Test Urine Negative Last Edit by EVENS Maynard on 11/14/23 09:01 Assessment & Plan Assessment & Plan (1) HPV in female: Code(s): B97.7 - Papillomavirus as the cause of diseases classified elsewhere Plan: Colpo done, see procedure Orders: Orders AMB Colposcopy Today B97.7 - Papillomavirus as the cause of diseases classified elsewhere Surgical Today B97.7 - Papillomavirus as the cause of diseases classified elsewhere, N87.0 - Mild cervical dysplasia AMB HCG Urine Test Today Z32.02 - Encounter for test, result negative Coding Level of Care Code Procedure Only Diagnoses HPV in female B97.7 CPT Codes Colposcopy - CPT: 40719-[id number] of cervix including upper vagina with ECC ([id number])
[2023-11-14 08:55] VITALS: BP 110/70; BMI 38.9
== END 2023-11-14 10:13 | disposition home or self-care (01) ==
LOC: HO.HWS 08:45
PROVIDERS: PCP Internal Medicine; Visit Provider Obstetrics & Gynecology
DX: R87.810 Cervical high risk human papillomavirus (HPV) DNA test positive (principal); Z32.02 Encounter for pregnancy test, result negative
CPT/HCPCS: 57456

== ENCOUNTER 2023-11-14 08:44 | Outpatient (REF) | payer OTHER, SELFPAY | END 2023-11-14 08:45 | disposition home or self-care (01) | LOC: HO.LAB 08:44 | PROVIDERS: PCP Internal Medicine; Visit Provider Obstetrics & Gynecology | DX: N87.0 Mild cervical dysplasia (principal); B97.7 Papillomavirus as the cause of diseases classified elsewhere; Z32.02 Encounter for pregnancy test, result negative | CPT/HCPCS: 57456; 81025; 88305 ==

== ENCOUNTER 2023-11-23 09:55 | Outpatient (AMB) | payer OTHER, SELFPAY ==
[2023-11-23 09:57] VITALS: BP 130/80; BMI 37.2
--- NOTE | 2023-11-23 09:57 | MHC.PC.OV ---
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 Accompanied by: Self / Same As Patient Allergies aspirin [ASPIRIN] Allergy (Intermediate, Verified 11/23/23 10:08) SWELLING Medication List - Last Reconciled 11/23/23 by Rayne Koo MD cyclobenzaprine 10 mg PO TID 30 days ibuprofen 800 mg PO TID 30 days loratadine 10 mg PO DAILY 90 days Tobacco use date assessed: 11/23/23 Dental Screening Dental Screen Date: 11/23/23 Did you have a dental visit in the last 12 months?: No Did you have a dental problem in the last 6 months where you did not have access to dental care?: No Was dental information given to patient?: Patient has dentist HPI HPI Comments History of Present Illness Details This is a 52-year-old female with sacroiliitis that comes for her physical exam. Sacroiliitis stable with ibuprofen and cyclobenzaprine as needed. Last colonoscopy was 2022 showing tubular adenoma and next colonoscopy should be in 5 years. 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 No chest pain or shortness of breath. No fever, bowel or bladder incontinence. She is obese with a BMI of 37.2 and is currently on diet and has lost few lb. [facility] Medical History (Updated 11/23/23 @ 10:19 by Rayne Koo MD) Seasonal allergic rhinitis due to pollen Headache Skin tag Mild recurrent major depression Physical exam Dysplasia of cervix, low grade (CALEB 1) Sacroiliitis Obese Sacral pain Shoulder bursitis Back pain GERD (gastroesophageal reflux disease) Constipation Depression Sinusitis Surgical History (Updated 11/23/23 @ 10:11 by Rayne Koo MD) H/O LEEP History of tubal ligation Family History Father No problems noted. Mother CVD (cardiovascular disease) Paternal Grandmother CVD (cardiovascular disease) Paternal Uncle Leukemia Sister In good health Son In good health Son In good health Daughter In good health Daughter In good health Father Diabetes HTN (hypertension) Mother CVD (cardiovascular disease) Paternal Uncle Leukemia Paternal Grandmother CVD (cardiovascular disease) Maternal Grandmother No problems noted. Maternal Grandfather No problems noted. Social History Housing: Apartment Alcohol intake: current Alcohol intake frequency: holidays/special occasions only Alcohol type: hard liquor Patient Tobacco Use Status: Never used Tobacco Years Smoked: 1 year e-Cigarette/Vaping Use: Never Used Second Hand Smoke Exposure: No service: No Current occupational status: unemployed Gender identity: Female Cognitive needs: No Hearing needs: No Vision needs: No Female Reproductive History Menstrual Age of Menarche: 12 Questionnaire PHQ-9 Over the last 2 weeks, how often have you been bothered by any of the following problems? 1. Little interest or pleasure in doing things: not at all 2. Feeling down, depressed, or hopeless: not at all 3. Trouble falling or staying asleep, or sleeping too much: not at all 4. Feeling tired or having little energy: not at all 5. Poor appetite or overeating: not at all 6. Feeling bad about yourself - or that you are a failure or have let yourself or your family down: not at all 7. Trouble concentrating on things, such as reading the newspaper or watching television: not at all 8. Moving or speaking so slowly that other people could have noticed. Or the opposite - being so fidgety or restless that you have been moving around a lot more than usual: not at all 9. Thoughts that you would be better off or of hurting yourself in some way: not at all Total score: 0 Depression Screening Interpretation: Negative Depression Screening Done: Yes 47434 - PHQ-9 Billing: Yes Source: Developed by Drs. Stan Franco, Rain Mckinney, Martinez Marte and colleagues, with an educational jody from [employer]. Thrive Questionnaire Date Thrive assessed: 11/23/23 I am a: Patient What is your living situation today?: I have a steady place to live Within the past 12 months, did the food you bought not last and you didn't have the money to get more?: Never true Within the past 12 months, did you worry whether your food would run out before you got money to buy more?: Never true Do you have trouble paying for medicines?: No Do you have trouble getting transportation to medical appointments?: No Do you have trouble paying your heating and electricity bill?: No Do you have trouble taking care of your child, family member or friend?: No Do you have trouble with day-to-day activities such as bathing, preparing meals, shopping, managing finances, etc.?: No Are you currently unemployed and looking for a job?: No Are you interested in more education?: No Please select the resources that you would like help with: None Currently or been in a relationship where the following occur: no concerns reported THRIVE Score: 0 AUDIT C Alcohol Use Questionnaire (AUDIT-C) 1. How often do you have a drink containing alcohol?: Monthly or less 2. How many drinks containing alcohol do you have on a typical day when you are drinking?: 1 or 2 3. How often do you have six or more drinks on one occasion?: Never Total Score: 1 Score Reviewed/Action Taken: No TUAN-7 AMB Questionnaire TUAN-7 Date TUAN - 7 assessed: 11/23/23 Feeling nervous, anxious, or on edge: 0 = Not at all Not being able to stop or control worryin = Not at all Worrying too much about different things: 0 = Not at all Trouble relaxin = Not at all Being so restless that it is hard to sit still: 0 = Not at all Becoming easily annoyed or irritable: 0 = Not at all Feeling afraid as if something awful might happen: 0 = Not at all Total TUAN-7 score (0-4 normal; 5-9 mild; 10-14 moderate; 15-21 severe): 0 Source: Developed by Drs. Stan Franco, Rain Mckinney, Martinez Marte and colleagues, with an educational jody from [employer]. TUAN-7 Assessment Billing TUAN-7 Assessment Tool: TUAN-7 Assessment 02628 Review of Systems Const All systems reviewed & are unremarkable except as noted in HPI and below Eyes Reports no additional complaints, Denies change in vision and Denies other visual disturbances Card Denies chest pain at rest, Denies chest pain with activity, Denies edema, Denies irregular heart rhythm, Denies claudication, Denies dyspnea, Denies dyspnea on exertion, Denies orthopnea, Denies paroxysmal nocturnal dyspnea and Denies slow heart rate Resp Denies cough, Denies dyspnea and Denies dyspnea on exertion GI Denies abdominal pain, Denies change in bowel habits, Denies excessive flatus, Denies nausea and Denies vomiting Denies urinary incontinence, Denies urinary hesitancy and Denies urinary urgency Musc Denies abnormal gait, Denies atrophy, Denies deformity and Denies limited range of motion Skin/Breast Denies bleeding lesions, Denies changing lesions and Denies rash Neuro Denies abnormal gait, Denies behavioral changes, Denies confusion and Denies lack of coordination Psych Denies behavioral changes and Denies confusion Physical exam (Primary Care) Vital Signs: Last Vital Signs BP 130/80 11/23/23 09:57 BMI result Body Mass Index 37.2 Tobacco/Smoking Status: Tobacco use Status Tobacco use date assessed 11/23/23 11/23/23 10:04 Patient Tobacco Use Status Never used Tobacco 11/23/23 10:04 Tobacco use type 11/08/22 10:35 e-Cigarette/Vaping Use Never Used 11/23/23 10:04 PHQ-9: PHQ-9 Score PHQ-9: Total score 0 11/23/23 10:04 Depression Screening Interpretation: Negative Thrive Assessment: Date of Thrive Assessment Date Thrive assessed 11/23/23 11/23/23 10:04 Currently or been in a relationship where the following occur: no concerns reported Const General: No confusion Orientation/consciousness: patient oriented x3 and No confusion HENMT Head: Yes normal to inspection, Yes normocephalic and Yes atraumatic Ears: external ears normal Eyes General: appearance normal, both eyes and all related structures Eyelids: Yes eyelids normal Conjunctivae: conjunctivae normal Neck Neck: Yes normal visual inspection and Yes supple Resp Effort & Inspection: normal respiratory effort Auscultation: clear to auscultation bilaterally Cardio Jugular venous distension: no JVD Rate: regular rate Rhythm: regular rhythm Heart sounds: S1 normal heart sound present and S2 normal heart sound present GI Inspection: Yes normal to inspection Palpation (GI): Soft to palpation and nontender Auscultation: normal bowel sounds Skin General skin exam: no rashes or lesions noted Neuro General: patient oriented x3, no focal motor deficits and No confusion Extrem General: Yes full ROM Psych Appearance: grossly normal Assessment and Plan Assessment & Plan (1) Physical exam: Code(s): Z00.00 - Encounter for general adult medical examination without abnormal findings Plan: Repeat in a year. (2) Sacroiliitis: Code(s): M46.1 - Sacroiliitis, not elsewhere classified Plan: Continue ibuprofen and cyclobenzaprine as needed. Orders: Orders Vitamin D 25-OH Total Today E55.9 - Vitamin D deficiency, unspecified Comprehensive [place]. Panel Fast Today Z00.00 - Encounter for general adult medical examination without abnormal findings Lipid Panel Today E78.5 - Hyperlipidemia, unspecified Medications: New cholecalciferol (vitamin D3) 25 mcg PO DAILY 90 days 90 caps 1RF E55.9 - Vitamin D deficiency, unspecified Changed From cyclobenzaprine 10 mg PO TID 30 days 90 tabs 1RF M46.1 - Sacroiliitis, not elsewhere classified To cyclobenzaprine 10 mg PO TID 30 days PRN 90 tabs 3RF muscle spasm M46.1 - Sacroiliitis, not elsewhere classified From ibuprofen 800 mg PO TID 30 days 90 tabs 1RF M46.1 - Sacroiliitis, not elsewhere classified To ibuprofen 800 mg PO TID 30 days PRN 90 tabs 1RF pain M46.1 - Sacroiliitis, not elsewhere classified From loratadine 10 mg PO DAILY 90 days 90 tabs 1RF To loratadine 10 mg PO DAILY 90 days PRN 90 tabs 1RF allergic symptoms Coding Level of Care Code Est Pt Prev Care 40-64y(71298) Diagnoses Physical exam Z00.00 Sacroiliitis M46.1 Additional Codes TUAN-7 Assessment Billing - TUAN-7 Assessment Tool: TUAN-7 Assessment [id number] ([id number]) Time Spent (min) 32
== END 2023-11-23 10:16 | disposition home or self-care (01) ==
PROVIDERS: Visit Provider Internal Medicine
DX: Z00.00 Encounter for general adult medical examination without abnormal findings (principal); M46.1 Sacroiliitis, not elsewhere classified
CPT/HCPCS: 99396

== ENCOUNTER 2023-12-08 09:52 | Outpatient (AMB) | payer OTHER, SELFPAY ==
--- NOTE | 2023-12-08 09:56 | MHC.OFFVIS ---
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 She declines to have the EMB done today because she just had a ECC procedure a few weeks ago and she thought she was here today for results on that procedure. [facility] Medical History (Updated 11/23/23 @ 10:19 by Rayne Koo MD) Seasonal allergic rhinitis due to pollen Headache Skin tag Mild recurrent major depression Physical exam Dysplasia of cervix, low grade (CALEB 1) Sacroiliitis Obese Sacral pain Shoulder bursitis Back pain GERD (gastroesophageal reflux disease) Constipation Depression Sinusitis Surgical History (Updated 11/23/23 @ 10:11 by Rayne Koo MD) H/O LEEP History of tubal ligation Family History Father No problems noted. Mother CVD (cardiovascular disease) Paternal Grandmother CVD (cardiovascular disease) Paternal Uncle Leukemia Sister In good health Son In good health Son In good health Daughter In good health Daughter In good health Father Diabetes HTN (hypertension) Mother CVD (cardiovascular disease) Paternal Uncle Leukemia Paternal Grandmother CVD (cardiovascular disease) Maternal Grandmother No problems noted. Maternal Grandfather No problems noted. Social History Housing: Apartment Alcohol intake: current Alcohol intake frequency: holidays/special occasions only Alcohol type: hard liquor Patient Tobacco Use Status: Never used Tobacco Years Smoked: 1 year e-Cigarette/Vaping Use: Never Used Second Hand Smoke Exposure: No service: No Current occupational status: unemployed Gender identity: Female Cognitive needs: No Hearing needs: No Vision needs: No Female Reproductive History Menstrual Age of Menarche: 12 Review of Systems Const All systems reviewed & are unremarkable except as noted in HPI and below Endo Reports no additional complaints Physical Exam Vital Signs: Last Vital Signs BP 120/80 12/08/23 09:57 BMI result Body Mass Index 37.2 Const General: cooperative, healthy appearing and no acute distress Psych Appearance: well kempt Attitude: cooperative Thought process: Normal thought process present Results AMB Test Urine AMB Test Urine Negative Last Edit by EVENS Maynard on 12/08/23 10:10 Results Reviewed Results Reviewed: Laboratory Last Values [facility] Clinic Negative 12/08/23 10:09 [place] [id number] Ultrasound Report Signed Patient: Adina Miller MR#: [id number] : 1970 Acct:[id number] Age/Sex: 52 / F ADM Date: 11/10/23 Loc: HO.US Attending Dr: Ayaka Hernandez CNM Ordering Physician: Ayaka Hernandez CNM Date of Service: 11/10/23 Procedure(s): US pelvic and transvaginal Accession Number(s): [id number] cc: Ayaka Hernandez CNM; Rayne Toledo MD~ EXAMINATION: US PELVIS CLINICAL INFORMATION: Postmenopausal bleeding. COMPARISON: Pelvic ultrasound dated 05/03/2018. TECHNIQUE: Ultrasound of the pelvis is performed using both transabdominal and transvaginal transducers along with Doppler. Transvaginal imaging is performed due to inadequate visualization transabdominally. FINDINGS: Uterus: The uterus is anteverted and measures 8.8 x 3.3 x 4.5 cm. The uterus is anteverted and anteflexed. The double wall endometrial thickness is 2 mm. The uterus is smooth in contour and has normal myometrial echogenicity. No visible fibroid. Complex Nabothian cysts are seen within the cervix. Adnexa: Both ovaries are visualized. There is normal color flow to the adnexa. There is no ovarian torsion. There is no pelvic ascites or fluid collection. Right ovary measures 2.7 x 1.3 x 1.2 cm, volume 2.2 mL. Left ovary measures 2.7 x 1.7 x 1.9 cm, volume 4.5 mL. US/US pelvic and transvaginal IMPRESSION: Complex Nabothian cysts are seen. The examination is otherwise unremarkable. Dictated By: Noam Chase MD Signed By: <Electronically signed by Noam Chase MD in OV> 11/14/23 1353 DD/ 1108 TD/TT: Diversified Crops Farmer: VERO Assessment & Plan Assessment & Plan (1) Postmenopausal bleeding: Code(s): N95.0 - Postmenopausal bleeding (2) Encounter to discuss test results: Code(s): Z71.2 - Person consulting for explanation of examination or test findings Plan Discussed ultrasound findings. Patient counseled for the purpose of the test- regarding the EMB procedure, pt. declined today. She is interested in hysteroscopy an appointment will be made for her to speak with the MD about her options, plans to coordinate that visit with her follow up visit for her colposcopy results. Advised repeat Pap and followups will be required for her history of HPV. All of her questions and concerns were addressed to the best of my ability and shared decision making. She is agreeable to the plan of care. This note is constructed using voice recognition software. While every effort has been made to ensure accuracy, band attacher errors may have been included. Orders: Orders AMB HCG Urine Test Today Z32.02 - Encounter for test, result negative Coding Level of Care Code Est Pt Level 3 (72242) Diagnoses Postmenopausal bleeding N95.0 Encounter to discuss test results Z71.2
[2023-12-08 09:57] VITALS: BP 120/80; BMI 37.2
== END 2023-12-08 13:00 | disposition home or self-care (01) ==
LOC: HO.HWSW 09:53
PROVIDERS: PCP Internal Medicine; Visit Provider Advanced Practice Midwife
DX: N95.0 Postmenopausal bleeding (principal); Z71.2 Person consulting for explanation of examination or test findings; Z32.02 Encounter for pregnancy test, result negative
CPT/HCPCS: 99213

== ENCOUNTER → 2023-12-08 09:52 | Outpatient (BNVA) | payer OTHER, SELFPAY | PROVIDERS: PCP Internal Medicine; Visit Provider Advanced Practice Midwife | DX: N95.0 Postmenopausal bleeding (principal); Z71.2 Person consulting for explanation of examination or test findings | CPT/HCPCS: 81025; 99212 ==

== ENCOUNTER 2023-12-15 12:56 | Outpatient (AMB) | payer OTHER, SELFPAY ==
--- NOTE | 2023-12-15 13:00 | MHC.OFFVIS ---
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 The patient is doing well with no complaints. The pathology showed the following: Endocervix, curettage: Scant benign endocervical glandular and squamous epithelium; no dysplasia seen. Comment: The patient's previous negative Pap test (CY24-62) concurs with the current curettage [facility] Medical History (Updated 12/15/23 @ 13:07 by Bari Castillo MD) Seasonal allergic rhinitis due to pollen Headache Skin tag Mild recurrent major depression Physical exam Dysplasia of cervix, low grade (CALEB 1) Sacroiliitis Obese Sacral pain Shoulder bursitis Back pain GERD (gastroesophageal reflux disease) Constipation Depression Sinusitis Surgical History (Updated 11/23/23 @ 10:11 by Rayne Koo MD) H/O LEEP History of tubal ligation Family History Father No problems noted. Mother CVD (cardiovascular disease) Paternal Grandmother CVD (cardiovascular disease) Paternal Uncle Leukemia Sister In good health Son In good health Son In good health Daughter In good health Daughter In good health Father Diabetes HTN (hypertension) Mother CVD (cardiovascular disease) Paternal Uncle Leukemia Paternal Grandmother CVD (cardiovascular disease) Maternal Grandmother No problems noted. Maternal Grandfather No problems noted. Social History Housing: Apartment Alcohol intake: current Alcohol intake frequency: holidays/special occasions only Alcohol type: hard liquor Patient Tobacco Use Status: Never used Tobacco Years Smoked: 1 year e-Cigarette/Vaping Use: Never Used Second Hand Smoke Exposure: No service: No Current occupational status: unemployed Gender identity: Female Cognitive needs: No Hearing needs: No Vision needs: No Female Reproductive History Menstrual Age of Menarche: 12 Review of Systems Const All systems reviewed & are unremarkable except as noted in HPI and below Reports as per HPI and Reports no additional complaints GI Reports no additional complaints Reports no additional complaints Physical Exam Vital Signs: Last Vital Signs BP 110/70 12/15/23 13:04 BMI result Body Mass Index 37.2 Assessment & Plan Assessment & Plan (1) ASCUS with positive high risk HPV cervical: Code(s): R87.610 - Atypical squamous cells of undetermined significance on cytologic smear of cervix (ASC-US); R87.810 - Cervical high risk human papillomavirus (HPV) DNA test positive Plan: Discussed with the patient the pathology results of the colposcopy biopsies & endocervical curettage ( negative). Discussed with the patient the sensitivity specificity, positive and negative predictive value in detecting cervical cancer in addition discussed the regression, persistence and progression rates. Recommended co-testing in 12 months, if cytology and or HPV are abnormal will proceed was colposcopy biopsy and endocervical curettage. Instructions given to the patient to schedule a co test appointment in 1 year. All questions answered the patient verbalized understanding. Coding Level of Care Code Est Pt Level 3 (89271) Diagnoses ASCUS with positive high risk HPV cervical R87.610; R87.810
[2023-12-15 13:04] VITALS: BP 110/70; BMI 37.2
== END 2023-12-15 15:07 | disposition home or self-care (01) ==
PROVIDERS: PCP Internal Medicine; Visit Provider Obstetrics & Gynecology
DX: R87.610 Atypical squamous cells of undetermined significance on cytologic smear of cervix (ASC-US) (principal); R87.810 Cervical high risk human papillomavirus (HPV) DNA test positive
CPT/HCPCS: 99213

== ENCOUNTER → 2023-12-15 12:56 | Outpatient (BNVA) | payer OTHER, SELFPAY | PROVIDERS: PCP Internal Medicine; Visit Provider Obstetrics & Gynecology | DX: R87.610 Atypical squamous cells of undetermined significance on cytologic smear of cervix (ASC-US) (principal); R87.810 Cervical high risk human papillomavirus (HPV) DNA test positive; Z72.0 Tobacco use | CPT/HCPCS: 99212 ==

== ENCOUNTER 2024-09-19 07:20 | Outpatient (AMB) | payer OTHER, SELFPAY ==
[2024-09-19 07:43] VITALS: BP 120/82; BMI 33.3
--- NOTE | 2024-09-19 07:43 | MHC.PC.OV ---
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 Accompanied by: Self / Same As Patient Allergies aspirin [ASPIRIN] Allergy (Intermediate, Verified 09/19/24 07:49) SWELLING Medication List - Last Reconciled 09/19/24 by Rayne Koo MD cholecalciferol (vitamin D3) 25 mcg PO DAILY 90 days cyclobenzaprine 10 mg PO TID PRN 30 days ibuprofen 800 mg PO TID PRN 30 days loratadine 10 mg PO DAILY PRN 90 days Tobacco use date assessed: 11/23/23 Dental Screening Dental Screen Date: 11/23/23 Did you have a dental visit in the last 12 months?: No Did you have a dental problem in the last 6 months where you did not have access to dental care?: No Was dental information given to patient?: Patient has dentist HPI HPI Comments History of Present Illness Details The patient is a 53-year-old female presenting for a preoperative evaluation in anticipation of an abdominoplasty scheduled on October 17. As part of the preoperative preparation, the patient requires a comprehensive review, including cardiovascular assessment due to family history of cardiovascular disease in her mother, who has been diagnosed with heart disease. The patient reports a previous allergic reaction to aspirin, characterized by swelling. She is currently on Vitamin D supplementation and uses medications like Cyclobenzaprine for muscle spasms, Ibuprofen for sacroilitis, and Loratadine for allergies as needed. She has undergone a tubal ligation and a prior liposuction procedure as part of her surgical history. The patient has successfully lost weight, reducing from 180 pounds (BMI 38.9) to 154 pounds (BMI 33.3), attributable to dietary adjustments and possibly the use of dietary supplements. There is no reported history of smoking, and alcohol consumption is less than once a month. Has 5 to 7 METs of ADLs. Going to medium risk surgery and she is a low risk patient. [facility] Medical History Seasonal allergic rhinitis due to pollen Headache Skin tag Mild recurrent major depression Physical exam Dysplasia of cervix, low grade (CALEB 1) Sacroiliitis Obese Sacral pain Shoulder bursitis Back pain GERD (gastroesophageal reflux disease) Constipation Depression Sinusitis Surgical History H/O LEEP History of tubal ligation Family History Father No problems noted. Mother CVD (cardiovascular disease) Paternal Grandmother CVD (cardiovascular disease) Paternal Uncle Leukemia Sister In good health Son In good health Son In good health Daughter In good health Daughter In good health Father Diabetes HTN (hypertension) Mother CVD (cardiovascular disease) Paternal Uncle Leukemia Paternal Grandmother CVD (cardiovascular disease) Maternal Grandmother No problems noted. Maternal Grandfather No problems noted. Social History (Updated 09/19/24 @ 07:53 by Rayne Koo MD) Housing: Apartment Alcohol intake: former Patient Tobacco Use Status: Never used Tobacco Years Smoked: 1 year e-Cigarette/Vaping Use: Never Used Second Hand Smoke Exposure: No service: No Current occupational status: unemployed Gender identity: Female Cognitive needs: No Hearing needs: No Vision needs: No Female Reproductive History Menstrual Age of Menarche: 12 Questionnaire Thrive Questionnaire Date Thrive assessed: 11/23/23 TUAN-7 AMB Questionnaire TUAN-7 Date TUAN - 7 assessed: 11/23/23 Source: Developed by Drs. Stan Franco, Rain Mckinney, Martinez Marte and colleagues, with an educational jody from [employer]. Review of Systems Const Details: - Cardiovascular: Denies chest pain and shortness of breath with exertion such as climbing stairs. - Respiratory: Denies any complaints related to exertional dyspnea. - Constitutional: Reports significant intentional weight loss. Physical exam (Primary Care) Vital Signs: Last Vital Signs BP 120/82 09/19/24 07:43 BMI result Body Mass Index 33.3 BMI Assessment/Plan discussion: High BMI High, discussed plan: lifestyle, weight reduction, dietary and physical activity Tobacco/Smoking Status: Tobacco use Status Tobacco use date assessed 11/23/23 09/19/24 07:46 Patient Tobacco Use Status Never used Tobacco 09/19/24 07:46 Tobacco use type 11/08/22 10:35 e-Cigarette/Vaping Use Never Used 09/19/24 07:46 Thrive Assessment: Date of Thrive Assessment Date Thrive assessed 11/23/23 09/19/24 07:46 Const Other: General: No confusion Respiratory: Normal respiratory effort, clear to auscultation bilaterally Cardiovascular: No jugular venous distension, regular rate, regular rhythm, S1 normal heart sound present and S2 normal heart sound present GI: Normal to inspection, Soft to palpation and nontender, normal bowel sounds Neurology: Patient oriented x3, no focal motor deficits and No confusion Extremities: Full ROM Psychology: Grossly normal Coding Level of Care Code Est Pt Level 4 (76967) Complex EM visit Add On G2211 Diagnoses Pre-op evaluation Z01.818 Class 1 obesity with body mass index (BMI) of 33.0 to 33.9 in adult E66.811; Z68.33 Hypovitaminosis D E55.9 Sacroiliitis M46.1 Time Spent (min) 24 Assessment & Plan Assessment & Plan (1) Pre-op evaluation: Code(s): Z01.818 - Encounter for other preprocedural examination Category: Medical (2) Class 1 obesity with body mass index (BMI) of 33.0 to 33.9 in adult: Code(s): E66.811 - Obesity, class 1; Z68.33 - Body mass index [BMI] 33.0-33.9, adult Category: Medical (3) Hypovitaminosis D: Code(s): E55.9 - Vitamin D deficiency, unspecified Category: Medical (4) Sacroiliitis: Code(s): M46.1 - Sacroiliitis, not elsewhere classified Category: Medical Plan - Anesthetic evaluation for general anesthesia preceding the abdominoplasty. - Preoperative cardiology workup, including an electrocardiogram due to family history of cardiovascular disease. - Ensure completion of necessary preoperative tests such as laboratory tests and chest x-ray to ensure surgical eligibility. - Continue current medications, with specific avoidance of aspirin due to known allergy. - Continue ibuprofen prn for sacroilitis. Patient was informed and verbally consented to the use of an ambient scribe for clinic note documentation during this visit. I addressed the surgical procedure and required evaluations necessary for clearance, including an electrocardiogram and possible chest x-ray. We discussed avoiding aspirin due to her known allergy and reassured her about the process and safety measures associated with general anesthesia. Based on her family history, the importance of confirming cardiac health was underscored. I emphasized diet, physical activity, and weight management in her health maintenance plan to mitigate surgery-related risks. We concluded with ensuring timely completion of preventive cardiovascular assessments before surgery. Orders: Orders Vitamin D 25-OH Total Today E55.9 - Vitamin D deficiency, unspecified Complete Blood Count Auto Diff Today Z01.818 - Encounter for other preprocedural examination Comprehensive Maurepas. Panel Fast Today Z01.818 - Encounter for other preprocedural examination HCG Quantitative Today Z01.818 - Encounter for other preprocedural examination Thyroid Stimulating Hormone Today Z01.818 - Encounter for other preprocedural examination Prothrombin Time INR Today Z01.818 - Encounter for other preprocedural examination Partial Thromboplastin Time Today Z01.818 - Encounter for other preprocedural examination Lipid Panel Today E78.5 - Hyperlipidemia, unspecified ECG 12 lead EKG Today Z01.818 - Encounter for other preprocedural examination XR chest 2V Today Z01.818 - Encounter for other preprocedural examination Free T4 (Free Thyroxine) Today Z01.818 - Encounter for other preprocedural examination Triiodothyronine T3 Free Today Z01.818 - Encounter for other preprocedural examination Hemoglobin A1c Today E11.9 - Type 2 diabetes mellitus without complications, Z01.818 - Encounter for other preprocedural examination HIV-1 Gen Rflx RNA Qn PCR Today Z01.818 - Encounter for other preprocedural examination HIV Ab/Ag Today Z01.818 - Encounter for other preprocedural examination Patient Instructions: - Complete all preoperative tests, including blood tests and a chest x-ray as instructed. - Follow a clear liquid diet starting midnight before surgery if required by the surgical team. - Report any respiratory symptoms or new onset of chest pain immediately. - Avoid taking aspirin or aspirin-containing medications due to allergy. - Maintain current weight management regimen and practice portion control. - Attend pre-surgical consultations and ensure all medical clearances are obtained timely.
== END 2024-09-19 08:01 | disposition home or self-care (01) ==
PROVIDERS: PCP Internal Medicine; Visit Provider Internal Medicine
DX: Z01.818 Encounter for other preprocedural examination (principal); E66.811 Obesity, class 1; Z68.33 Body mass index [BMI] 33.0-33.9, adult; M46.1 Sacroiliitis, not elsewhere classified; E55.9 Vitamin D deficiency, unspecified

== ENCOUNTER 2024-09-19 07:20 | Outpatient (REF) | payer OTHER, SELFPAY ==
--- NOTE | ~2024-09-19 | XR_ITS ---
EXAMINATION: XR CHEST CLINICAL INFORMATION: Encounter for other preprocedural examination Z01.818. COMPARISON: None available TECHNIQUE: 2 views of the chest were obtained. FINDINGS: Cardiac, hilar, and mediastinal contours are normal. Lungs are clear bilaterally. No consolidation, effusion, or pneumothorax. The imaged soft tissues and bony structures appear normal. XR/XR chest 2V IMPRESSION: Normal chest. Electronically signed by: Quoc Locke MD 09/25/2024 09:00 AM ANDREY
--- NOTE | 2024-09-19 08:20 | ECG_ITS ---
Test Reason : pre op Blood Pressure : / mmHG Vent. Rate : 067 BPM Atrial Rate : 067 BPM P-R Int : 148 ms QRS Dur : 084 ms QT Int : 402 ms P-R-T Axes : 053 008 057 degrees QTc Int : 424 ms Normal sinus rhythm Normal ECG When compared with ECG of 12-JUL-2023 14:12, No significant change was found Referred By: Rayne Koo Electronically Signed By:STARLA PEDERSEN
[2024-09-19 08:39] LABS: MANUAL DIFF FLAG NO
[2024-09-19 09:58] LABS: Basophils Percent Auto 0.5 % (0-2); Eosinophils Absolute Auto 0.3 X10*3/uL (0.0-0.4); Eosinophils Percent Auto 3.9 % (0-4); Hematocrit 38.2 % (37.0-47.0); Hemoglobin 13.1 g/dl (12.0-16.0); Imm Gran Abs Auto 0.04 X10*3/uL (0.00-0.03); Imm Gran Pct Auto 0.5 % (0.0-0.4); Lymphocytes Absolute Auto 1.8 X10*3/uL (1.2-4.9); Lymphocytes Percent Auto 23.6 % (20-40); Mean Corpuscular HGB Conc 34.3 g/dl (31.0-35.0); Mean Corpuscular Volume 90.3 fL (80.0-98.0); Mean Platelet Volume 10.7 fL (9.4-12.3); Monocytes Absolute Auto 0.7 X10*3/uL (0.1-1.2); Monocytes Percent Auto 8.8 % (2-11); Neutrophils Absolute Auto 4.8 x10*3/uL (2.0-8.3); Neutrophils Percent Auto 62.7 % (45-73); Platelet Count 272 X10*3/uL (160-400); Red Blood Count 4.23 X10*6/uL (4.20-5.50); Red Cell Distribution Width 11.4 % (11.0-16.0); White Blood Count 7.6 X10*3/uL (4.8-10.8)
[2024-09-19 10:02] LABS: INTERNATIONAL NORM RATIO 0.9 (0.9-1.1); Prothrombin Time 10.9 SEC (10.9-12.4)
[2024-09-19 10:03] LABS: Estimated Average Glucose 108 mg/dL; Hemoglobin A1C 117.3228 umol/L; Hemoglobin A1c % 5.4 % (<6.0); Total Hemoglobin (HGBA1C) 3343.9202 umol/L
[2024-09-19 10:04] LABS: Partial Thromboplastin Time 33.8 SEC (26.0-36.8)
[2024-09-19 10:32] LABS: Alanine Aminotransferase 23 U/L (0-31); Alkaline Phosphatase 98 U/L (39-117); Anion Gap 9 (12-20); Aspartate Amino Transferase 20 U/L (5-31); Bilirubin Total 0.2 mg/dL (0.0-1.0); Blood Urea Nitrogen 19 mg/dL (9-16); Calcium 9.2 mg/dL (8.4-10.2); Carbon Dioxide 28 mmol/L (22-29); Chloride 107 mmol/L (96-108); Cholesterol 157 mg/dL (<200); Estimated Glomerular Filt Rate > 60; Glucose Fasting 91 mg/dL (60-99); HDL Cholesterol 34 mg/dL (>40); LDL Cholesterol Calculated 87 mg/dL (<100); Sodium 140 mmol/L (135-145); Total Protein 7.6 g/dL (6.5-8.0); Triglycerides 182 mg/dL (<150)
[2024-09-19 10:35] LABS: HIV AB/AG Nonreactive (Nonreactive); HIV Num 1 0.05 S/CO (0.00-0.99)
[2024-09-19 10:48] LABS: Free T4 (Free Thyroxine) 1.06 ng/dL (0.71-1.85); HCG Quantitative 5 mIU/mL; Thyroid Stimulating Hormone 1.71 uIU/mL (0.32-4.0); Vitamin D 25-OH Total 33.5 ng/mL (>30)
[2024-09-20 09:33] LABS: Triiodothyronine T3 Free 3.2 pg/mL (2.3-4.2)
[2024-09-22 19:08] LABS: HIV RNA PCR Qn Copies Not Detected Copies/mL; HIV RNA PCR Qn Log Copies Not Detected Log cps/mL
== END 2024-09-19 07:21 | disposition home or self-care (01) ==
LOC: HO.XRAY 07:20
PROVIDERS: PCP Internal Medicine; Visit Provider Internal Medicine
DX: Z01.818 Encounter for other preprocedural examination (principal); E78.1 Pure hyperglyceridemia; E78.5 Hyperlipidemia, unspecified; E11.9 Type 2 diabetes mellitus without complications; E55.9 Vitamin D deficiency, unspecified; E66.811 Obesity, class 1; Z68.33 Body mass index [BMI] 33.0-33.9, adult; M46.1 Sacroiliitis, not elsewhere classified
CPT/HCPCS: 36415; 71046; 80053; 80061; 82306; 83036; 84439; 84443; 84481; 84702; 85025; 85610; 85730; 87389; 87536; 87900; 93005; 99212

== ENCOUNTER → 2024-09-19 08:20 | Outpatient (BNV) | payer OTHER, SELFPAY | PROVIDERS: PCP Internal Medicine; Visit Provider Internal Medicine | DX: E78.5 Hyperlipidemia, unspecified (principal); E78.1 Pure hyperglyceridemia | CPT/HCPCS: 93010 ==

== ENCOUNTER → 2024-09-19 08:39 | Outpatient (BNV) | payer OTHER, SELFPAY | PROVIDERS: PCP Internal Medicine; Visit Provider Radiology Diagnostic Radiology | DX: Z01.818 Encounter for other preprocedural examination (principal) | CPT/HCPCS: 71046 ==

== ENCOUNTER → 2024-11-05 09:43 | Outpatient (BNVA) | payer OTHER, SELFPAY | PROVIDERS: PCP Internal Medicine; Visit Provider Surgery ==

== ENCOUNTER 2024-11-12 10:09 | Outpatient (REF) | payer OTHER, SELFPAY | END 2024-11-12 10:10 | disposition home or self-care (01) | LOC: HO.MAMMO 10:09 | PROVIDERS: PCP Internal Medicine; Visit Provider Internal Medicine | DX: Z12.31 Encounter for screening mammogram for malignant neoplasm of breast (principal) | CPT/HCPCS: 77063; 77067 ==

== ENCOUNTER → 2024-11-12 10:30 | Outpatient (BNV) | payer OTHER, SELFPAY | PROVIDERS: PCP Internal Medicine; Visit Provider Internal Medicine | DX: Z12.31 Encounter for screening mammogram for malignant neoplasm of breast (principal) | CPT/HCPCS: 77063; 77067 ==

== ENCOUNTER 2024-11-16 08:09 | Outpatient (AMB) | payer OTHER, SELFPAY ==
--- OUTSIDE RECORDS SUMMARY | 2024-11-16 08:11 | XMS_ITS | Clinical Summary ---
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 03/17/2023 Active ibuprofen 800 MG tablet Take 800 mg by mouth 3 times daily. 11/08/2022 Active Active Problems No known active problems Social History Tobacco Use Types Packs/Day Years Used Date Smoking Tobacco: Former Cigarettes Tobacco Cessation:Counseling Given: Not Answered Comments Unknown Sex and Gender Information Value Date Recorded Sex Assigned at Female 08/02/2022 10:21 AM EDT Legal Sex Female 10:21 AM EDT Gender Identity Female 08/02/2022 10:21 AM EDT Sexual Orientation Straight 08/02/2022 10 :21 AM EDT Plan of Treatment Health Maintenance Due Date Last Done Comments CT Colonography 1971 Colonoscopy 1971 Colorectal Cancer Screening 1971 Depression Screening 1971 FIT DNA/Cologuard 1971 FIT 1971 FOBT 1971 HIV Screening 1971 SDOH Screening 1971 Sigmoidoscopy 1971 Alcohol/Substance Use Screening 1983 Family Planning (PISQ) 12/30/1986 Hepatitis C Screening 12/30/1989 Hepatitis B Vaccines (1 of 3 - 19+ 3-dose series) 12/30/1990 Pap Smear 12/30/1992 Cervical Cancer Screening 12/30/2001 HPV/Cotest 12/30/2001 Mammogram 2011 Dental Prophylaxis 04/28/2017 10/28/2016 Dental Oral Exam 10/15/2017 04/13/2017, 08/2016, 10/18/2014, Additional history exists Dental X-Ray: Full Mouth 10/19/2017 10/18/2014 Dental X-Ray: Bitewings 04/14/2018 04/13/20 17, 08/13/2016, 10/18/2014 Pneumococcal Vaccine: 50+ Years (1 of 1 - PCV) 12/30/2021 Zoster Vaccines (1 of 2) 12/30/2021 Tobacco Screening 04/27/2024 04/27/2023 COVID-19 Vaccine ( - season) 2024 07/02/2021, 12/04/2020, 11/11/2020 Influenza Vaccine (#1) 2024 08/01/2018 DTaP/Tdap/Td Vaccines (2 - Td or Tdap) 08/08/2028 08/08/2018 RSV Patients and Patients Aged 60 years or older (1 - 1-dose 75+ series) 12/30/2046 HIB Vaccines Aged Out No longer eligi ble based on patient's age to complete this topic HPV Vaccines Aged Out No longer eligi ble based on patient's age to complete this topic Hepatitis A Vaccines Aged Out No long er eligible based on patient's age to complete this topic IPV Vaccines Aged Out No longer eligi ble based on patient's age to complete this topic Meningococcal Vaccine Aged Out No malachi andrea eligible based on patient's age to complete this topic Pneumococcal Vaccine: Pediatrics (0 to 5 Years) and At-Risk Patients (6 to 49) Years) Aged Out No longer eligible based on patient's age to complete this topic RSV under 20 months Aged Out No longe r eligible based on patient's age to complete this topic Rotavirus Vaccines Aged Out No longer eligible based on patient's age to complete this topic Procedures Procedure Name Priority Date/Time Associated Diagnosis Comments BITEWINGS - 4 RADIOGRAPHIC IMAGES Routine 04/13/2017 12:00 AM EDT PERIODIC ORAL EVALUATION - ESTABLISHED PATIENT Routine 04/13/2017 12:00 AM EDT PROPHYLAXIS - ADULT Routine 10/28/2016 1 2:00 AM EST INTRAORAL - COMPLETE SERIES OF RADIOGRAPHIC IMAGES Routine 10/18/2014 12:00 AM EST from Last 3 Months or Most Recently Relevant [place] [address] [facility] MEDICAID STAND ADULT
--- NOTE | 2024-11-16 09:09 | A.OFFVIS_ITS ---
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* Automotive Power Electronics Engineer Required: Yes Automotive Power Electronics Engineer Services: Automotive Power Electronics Engineer Present Information Interpreted: clinical only Allergies aspirin [ASPIRIN] Allergy (Intermediate, Verified 11/16/24 09:10) SWELLING Medication List - Last Reconciled 11/16/24 by George Arteaga MD cholecalciferol (vitamin D3) 25 mcg PO DAILY 90 days cyclobenzaprine 10 mg PO TID PRN 30 days ibuprofen 800 mg PO TID PRN 30 days loratadine 10 mg PO DAILY PRN 90 days HPI HPI 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*: Details: Start time: 9.00am, End time: 9.40am ?I spent 35 minutes speaking with the patient on the phone plus an additional 5 minutes reviewing and updating records for a total of 40 minutes HPI Comments Details: Previous weight loss efforts: Tea Wakes up: 9am, sleeps: 11pm Breakfast: none Lunch: 12pm (eggs and toast) Dinner: 6pm (rice, beans, meat, salad) Snacks: 10am (banana) Exercise: none Fluids: Coffee (1 cup/d with milk and sugar), tea: none, soda: none, juice: none, ETOH: none PFSH Medical History Seasonal allergic rhinitis due to pollen Headache Skin tag Mild recurrent major depression Physical exam Dysplasia of cervix, low grade (CALEB 1) Sacroiliitis Obese Sacral pain Shoulder bursitis Back pain GERD (gastroesophageal reflux disease) Constipation Depression Sinusitis Surgical History H/O LEEP History of tubal ligation Family History Father No problems noted. Mother CVD (cardiovascular disease) Paternal Grandmother CVD (cardiovascular disease) Paternal Uncle Leukemia Sister In good health Son In good health Son In good health Daughter In good health Daughter In good health Father Diabetes HTN (hypertension) Mother CVD (cardiovascular disease) Paternal Uncle Leukemia Paternal Grandmother CVD (cardiovascular disease) Maternal Grandmother No problems noted. Maternal Grandfather No problems noted. Social History (Updated 09/19/24 @ 07:53 by Rayne Koo MD) Housing: Apartment Alcohol intake: former Patient Tobacco Use Status: Never used Tobacco Years Smoked: 1 year e-Cigarette/Vaping Use: Never Used Second Hand Smoke Exposure: No service: No Current occupational status: unemployed Gender identity: Female Cognitive needs: No Hearing needs: No Vision needs: No Female Reproductive History Menstrual Age of Menarche: 12 Telehealth Telehealth Telehealth Platform: Telephone Location of provider rendering services: practice address Location of patient: address on file Patient Identification confirmed using: Name, : Yes Telehealth method: voice only Patient verbally consented to treatment: Yes Patient verbally consented to billing insurance company: Yes Patient informed of any privacy concerns related to visit: Yes Minutes spent on Phone/Video with Pt.: 40 Assessment & Plan Assessment & Plan (1) Obese: Code(s): E66.9 - Obesity, unspecified Category: Medical Qualifiers: Obesity type: due to excess calories Obesity classification: adult class 1 (BMI 30 - 34.9) Serious obesity comorbidity presence: without serious comorbidity Body mass index: BMI 34.0-34.9 Qualified Code(s): E66.09 - Other obesity due to excess calories; Z68.34 - Body mass index [BMI] 34.0-34.9, adult Plan: The patient's blood pressure was elevated. I prescribed a blood pressure to measure her blood pressure every morning and send it to me. If it remains elevated, I will provide medical treatment. Depending on the outcome of this process we will decide what would be the bst medical option to address her obesity issue. The patient is in agreement. Medications: New blood pressure monitor As directed 1 ea 0RF I10 - Essential (primary) hypertension
== END 2024-11-16 09:40 | disposition home or self-care (01) ==
LOC: HO.HBS 08:09
PROVIDERS: PCP Internal Medicine; Visit Provider Surgery
DX: E66.09 Other obesity due to excess calories (principal); E66.811 Obesity, class 1; Z68.34 Body mass index [BMI] 34.0-34.9, adult
CPT/HCPCS: 99203

== ENCOUNTER → 2024-11-16 08:09 | Outpatient (BNVA) | payer OTHER, SELFPAY | PROVIDERS: PCP Internal Medicine; Visit Provider Surgery ==

== ENCOUNTER 2024-12-11 10:08 | Outpatient (AMB) | payer OTHER, SELFPAY ==
--- NOTE | 2024-12-11 10:00 | MHC.WMTHER ---
Intake Intake Visit Reasons: TV BH Intake Allergies aspirin [ASPIRIN] Allergy (Intermediate, Verified 11/16/24 09:10) SWELLING [facility] Medical History Seasonal allergic rhinitis due to pollen Headache Skin tag Mild recurrent major depression Physical exam Dysplasia of cervix, low grade (CALEB 1) Sacroiliitis Obese Sacral pain Shoulder bursitis Back pain GERD (gastroesophageal reflux disease) Constipation Depression Sinusitis Surgical History H/O LEEP History of tubal ligation Family History Father No problems noted. Mother CVD (cardiovascular disease) Paternal Grandmother CVD (cardiovascular disease) Paternal Uncle Leukemia Sister In good health Son In good health Son In good health Daughter In good health Daughter In good health Father Diabetes HTN (hypertension) Mother CVD (cardiovascular disease) Paternal Uncle Leukemia Paternal Grandmother CVD (cardiovascular disease) Maternal Grandmother No problems noted. Maternal Grandfather No problems noted. Social History (Updated 09/19/24 @ 07:53 by Rayne Koo MD) Housing: Apartment Alcohol intake: former Patient Tobacco Use Status: Never used Tobacco Years Smoked: 1 year e-Cigarette/Vaping Use: Never Used Second Hand Smoke Exposure: No service: No Current occupational status: unemployed Gender identity: Female Cognitive needs: No Hearing needs: No Vision needs: No Female Reproductive History Menstrual Age of Menarche: 12 Behavioral Health Assessment Weight Management Therapy Therapy Notes Details The patient is a 53-year-old female presenting for a behavioral health assessment as part of a surgical weight loss program. Initially interested in weight-loss medication, she now expresses a desire to pursue weight-loss surgery. Her goal is to reach a healthy weight and improve her overall body image and well-being. The patient reports having attended therapy several years ago to address life stress and participated in counseling for about two years. She does not recall receiving a specific diagnosis during that time, though she experienced mild depressive symptoms. The patient denies any history of crisis situations or inpatient psychiatric care and has no current concerns regarding suicidal ideation, self-harm, or harm to others. While the patient acknowledges concerns about stress-eating, she attributes this behavior to her food choices rather than emotional triggers. Additionally, the results from the BES suggest a low risk for binge eating behaviors. The PHQ-9 scores indicate no active symptoms of depression. The mental status exam is within normal limits, and the patient?s functioning appears intact. At this time, the patient is cleared from a behavioral health standpoint and will follow up with this provider 1-3 weeks post-surgery. Presenting Concerns Referral Source WMP-Provider. PT had initial visit with Dr. Hawkins on 11/16/2024 Reason for referral Completion of behavioral health assessment as part of process for weight-loss surgery. Precipitating Event Obesity Living Situation Current Living Situation Rent At risk of losing current housing? No Satisfied with current living situation? Yes Comments PT lives alone. Food/Weight/Diet Expectations of change Initial goal: None were identified per the last note with the surgeon. PT would like to be at her healthy weight and eventually be able to get an abdominoplasty done. Her target Weight post-surgery is at least 120lbs. PT is implementing the following: Current meal plan: Portion control, self-diet. Exercise plan: YouTube videos, 3-4 times a week. scale: yes. Communication with provider: weekly on Wednesdays. History/Relationship with food PT reports, in the past she didn't have a set meal schedule in the past and would eat anything she wanted without measuring or setting a limit. Some days she would try to limit her meals, after having days when she felt out of control eating everything she wanted. She has engaged in stress-eating when tense or dealing with a preoccupation. PT reports she's not used to eat out or do take out often. Example of meals before starting the program: Breakfast: @10m, Bread with scrambled eggs. Lunch: None- Skip Dinner: @6pm: rice with beans, salad, and meat. Snacks: Fruits (orange, bananas) Drinks/Liquids: Water, Soda (1-2 cans a day), 1 glass a couple times a week, coffee with Milk and sugar or honey. History/Relationship with weight PT reports she has always been overweight. In the last 10 years, the patient's Lowest weight was 140Lbs and highest 180Lbs. History/Relationship with dieting Intermittent fasting last year. Four months ago, PT started her weight-loss journey with portion control and weight-loss medication (Semaglutide), which she used for about three months and lost 8 lbs. In total, she has lost 30 Lbs. Binge Eating Do you frequently eat large amounts of food in short periods of time, not feeling physically hungry? Yes Do you feel out of control when you eat a large amount of food in a short period of time? No Do you eat large amounts of food rapidly and typically alone? No Night Eating Do you wake up at least once during the night to eat? No If you wake up in the night, do you find that it is necessary to eat something in order to fall back asleep? No Do you have little or no appetite in the morning and feel very hungry in the evening, often overeating between dinner and when you go to bed? Yes Social History Family history and relationship PT has never . She is currently in a relationship with her boyfriend 5 years. PT has 4 adult children from previous relationships. She has 1 sister and her parents are alive. PT reports she has a close relationship with children and her mother. She gets along with sister but they're not as close, and she doesn't have communication with her father. 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 Developmental history and status None reported. Currently WNL. Social support 1 son who lives in [place], boyfriend, her close friend. Community support PCP. Restorationist/Spirituality Grew up as Rastafarian, currently doesn't practice. Cultural/Ethnic information PT is from [place]. She lives in [place] since 2010. PT is primary Urdu-speaking. Legal Involvement and History Current or historical involvement with the legal system? None. Education Highest grade completed HS. Preferred learning style Learn by doing and Visual Currently enrolled in educational program? No Interested in further educational program? No Educational Interests/Skills does [employer] and enjoys driving. Employment Employment Status Other (Does [employer], couple days at week. Usually Less than 20Hrs at week.) Wants help to find employment? No Meaningful activities Listen to music. Financial Situation Describe current financial situation Comfortable Financial assistance? Food [place] and Other (Health insurance. ) Service Service? No Mental Health and Addiction Treatment Current/Past substance abuse? No Comments Alcohol: None. Cigarettes/Tobacco: None Cannabis/Edibles: None Current/Past addictive behavior concerns? No Psychiatric history The patient reports that several years ago, she attended therapy for life stress and participated in counseling for about two years. She is not aware of any specific diagnosis received during that time, but she experienced mild symptoms of depression. The patient denies ever being in crisis or requiring inpatient care for mental health issues. Additionally, there are no current concerns regarding suicidal ideation, self-harm, or harm to others. Medical and Physical Health Summary Additional Medical History not covered in history None aditional Sexual History concerns None reported Physical exam in the last year? Yes Pain Screening Current pain? Yes Pain in the last few months? Yes Comments different body aches. Medications Is the patient compliant with medications? Yes Does the patient have Mosquera Guardian in place? Not applicable Does the patient use complimentary health approaches? No Trauma/Abuse History History of trauma? No Questionnaires PHQ-9 Over the last 2 weeks, how often have you been bothered by any of the following problems? 1. Little interest or pleasure in doing things: several days 2. Feeling down, depressed, or hopeless: not at all 3. Trouble falling or staying asleep, or sleeping too much: several days (Staying asleep.) 4. Feeling tired or having little energy: several days 5. Poor appetite or overeating: not at all 6. Feeling bad about yourself - or that you are a failure or have let yourself or your family down: not at all 7. Trouble concentrating on things, such as reading the newspaper or watching television: not at all 8. Moving or speaking so slowly that other people could have noticed. Or the opposite - being so fidgety or restless that you have been moving around a lot more than usual: not at all 9. Thoughts that you would be better off or of hurting yourself in some way: not at all Total score: 3 Depression Screening Interpretation: Negative (PT scored 9 in initial PHQ-9 given with new PT pack. ) Depression Screening Done: Yes 89854 - PHQ-9 Billing: Yes Source: Developed by Drs. Stan Franco, Rain Mckinney, Martinez Marte and colleagues, with an educational jody from [employer]. Binge Eating Scale Group 1 A. I don't feel self-conscious about my wt. or body size when I'm with others. B. I feel concerned about how I look to others, but it normally does not make me fell disappointed with myself C. I do get self-conscious about my appearance and wt. which makes me feel disappointed in myself. D. I feel very self-conscious about my wt. and frequently I feel intense shame and disgust for myself. I try to avoid social contacts because of my self-consciousness. Response Group 1: C Group 2 A. I don't have any difficulty eating slowly in the proper manner. B. Although I seem to gobble down foods, I don't end up feeling stuffed because of eating to much. C. At times, I tend to eat quickly and then, I feel uncomfortably full afterwards. D. I have the habit of bolting down my food, without really chewing it. When this happens I usually feel uncomfortably stuffed because I've eaten to much. Response Group 2: D Group 3 A. I feel capable to control my eating urges when I want to. B. I feel like I have failed to control my eating more than the average person. C. I feel utterly helpless when it comes to feeling in control of my eating urges. D. Because I feel so helpless about controlling my eating I have become very desperate about trying to get control. Response Group 3: A Group 4 A. I don't have the habit of eating when I'm bored. B. I sometimes eat when I'm bored, but often I'm able to get busy and get my mind off food. C. I have a regular habit of eating when I'm bored, but occasionally, I can use some other activity to get my mind off eating. D. I have a strong habit of eating when I'm bored. Nothing seems to help me breath the habit. Response Group 4: D Group 5 A. I'm usually physically hungry when I eat something. B. Occasionally, I eat something on impulse even though I really am not hungry. C. I have the regular habit of eating foods, that I might not really enjoy, to satisfy a hungry feeling even though physically, I don't need the food. D. Although I'm not physically hungry, I get a hungry feeling in my mouth that only seems to be satisfied when I eat a food, like sandwich, that fills my mouth. Sometimes, when I eat the food to satisfy my mouth hunger, I then spit the food out so I won't gain weight. Response Group 5: B Group 6 A. I don't feel any guilt or self-hate after I overeat. B. After I overeat, occasionally I feel guilt or self-hate. C. Almost all the time I experience strong guilt or self-hate after I overeat. Response Group 6: B Group 7 A. I don't lose total control of my eating when dieting even after periods when I overeat. B. Sometimes when I eat a forbidden food on a diet, I feel like I blew it and eat even more. C. Frequently, I have the habit of saying to myself, I've blown it now, why not go all the way, when I overeat on a diet. When that happens I eat more. D. I have a regular habit of starting a strict diets for myself but I break the diets by going on an eating binge. My life seems to be either a feast or famine. Response Group 7: C Group 8 A. I rarely eat so much food that I feel uncomfortably stuffed afterwards. B. Usually about once a month, I each such a quantity of food, I end up feeling very stuffed. C. I have regular periods during the month when I eat large amounts of food, either at mealtime or at snacks. D. I eat so much food that I regularly feel quite uncomfortable after eating and sometimes a bit nauseous. Response Group 8: B Group 9 A. My level of calorie intake does not go up very high or go down very low on a regular basis. B. Sometimes after I overeat, I will try to reduce my caloric intake to almost nothing to compensate for the excess calories I've eaten. C. I have a regular habit of overeating during the night. It seems that my routine is not to be hungry in the morning but overeat in the evening. D. In my adult years, I have had week-long periods where I practically starve myself. This follows periods when I overeat. It seems I live a life of either feast or famine. Response Group 9: A Group 10 A. I usually am able to stop eating when I want to. I know when enough is enough. B. Every so often, I experience a compulsion to eat which I can't seem to control. C. Frequently, I experience strong urges to eat which I seem unable to control, but at other times I can control my eating urges. D. I feel incapable of controlling urges to eat. I have a fear of not being able to stop eating voluntarily. Response Group 10: C Group 11 A. I don't have any problem stopping eating when I feel full. B. I usually can stop eating when I feel full but occasionally overeat leaving me feeling uncomfortably stuffed. C. I have a problem stopping eating once I start and usually I feel uncomfortably stuffed after I eat a meal. D. Because I have a problem not being able to stop eating when I want, I sometimes have to induce vomiting to relieve my stuffed feeling. Response Group 11: A Group 12 A. I seem to eat just as much when I'm with others, Family social gatherings as when I'm by myself. B. Sometimes, when I'm with other persons, I don't eat as much as I want to eat because I'm self-conscious about my eating. C. Frequently, I eat only a small amount of food when others are present, because I'm very embarrassed about my eating. D. I feel so ashamed about overeating that I pick times to overeat when I know no one will see me. I feel like a closet eater. Response Group 12: B Group 13 A. I eat three meals a day with only an occasional between meal snack. B. I eat 3 meals a day, but I also normally snack between meals. C. When I am snacking heavily, I get in the habit of skipping regular meals. D. There are regular periods when I seem to be continually eating, with no planned meals. Response Group 13: A (PT usually has 2 meals and 1 snack. ) Group 14 A. I don't think much about trying to control unwanted eating urges. B. At least some of the time, I feel my thoughts are pre-occupied with trying to control my eating urges. C. I feel that frequently I spend much time thinking about how much I ate or about trying not to eat anymore. D. It seems to me that most of my waking hours are pre-occupied by thoughts about eating or not eating. I feel like I'm constantly struggling not to eat. Response Group 14: B Group 15 A. I don't think about food a great deal. B. I have strong craving for food but they last only for brief periods of time. C. I have days when I can't seem to think about anything else but food. D. Most of my days seem to be pre-occupied with thoughts about food. I feel like I live to eat. Response Group 15: B Group 16 A. I usually know whether or not I'm physically hungry. I take the right portion of food to satisfy me. B. Occasionally, I feel uncertain about knowing whether or not I'm physically hungry. A these times it's hard to know how much food I should take to satisfy me. C. Even though I might know how many calories I should eat, I don't have any idea what is a normal amount of food for me. Response Group 16: B Binge Eating Score: 19 Score less than 17 Minimal Risk Score between 18-26 Moderate Risk Score between 27-46 High Risk Assessment & Plan Assessment & Plan (1) Adjustment disorder, unspecified: Code(s): F43.20 - Adjustment disorder, unspecified (2) Class 1 obesity with body mass index (BMI) of 33.0 to 33.9 in adult: Code(s): E66.811 - Obesity, class 1; Z68.33 - Body mass index [BMI] 33.0-33.9, adult Plan At this time, the patient is cleared from a behavioral health standpoint and will follow up with this provider 1-3 weeks post-surgery. Next lambert: 1-3 wks PO Telehealth Telehealth [facility]health [facility] Location of provider rendering services: other Location of patient: address on file Patient Identification confirmed using: Name, : Yes Telehealth method: voice only Patient verbally consented to treatment: Yes Patient verbally consented to billing insurance company: Yes Patient informed of any privacy concerns related to visit: Yes Minutes spent on Phone/Video with Pt.: 60 Coding Level of Care Code New Pt Tele Psy Diag Erendira ([id number]) Patient Type New Diagnoses Adjustment disorder, unspecified F43.20 Class 1 obesity with body mass index (BMI) of 33.0 to 33.9 in adult E66.811; Z68.33 Additional Codes PHQ-9 - 37840 - PHQ-9 Billing: Yes ([id number]) Time Spent (min) 60
--- OUTSIDE RECORDS SUMMARY | 2024-12-11 11:53 | XMS_ITS | Clinical Summary ---
Author Organization [employer] Address [address] [place] [address] [address] [place] [address] Care Team Providers Care Account Services Specialist Name Role Phone Unavailable Primary Care Provider [...] [place] [address] [facility] MEDICAID STAND ADULT
== END 2024-12-11 11:14 | disposition home or self-care (01) ==
LOC: HO.HBST 10:08
PROVIDERS: PCP Internal Medicine; Visit Provider Counselor Mental Health
DX: F43.20 Adjustment disorder, unspecified (principal); E66.811 Obesity, class 1; Z68.33 Body mass index [BMI] 33.0-33.9, adult
CPT/HCPCS: 90791

== ENCOUNTER → 2024-12-11 10:08 | Outpatient (BNVA) | payer OTHER, SELFPAY | PROVIDERS: PCP Internal Medicine; Visit Provider Counselor Mental Health ==

== ENCOUNTER 2024-12-24 10:28 | Outpatient (REF) | payer OTHER, SELFPAY ==
--- NOTE | ~2024-12-24 | XR_ITS ---
EXAMINATION: XR CHEST 2 VIEWS HISTORY: E66.09 - Other obesity due to excess calories COMPARISON: Comparison is made with the prior examination dated 09/19/2024. FINDINGS: PA and lateral views of the chest are submitted. The lungs are expanded and clear. There is no pleural effusion, pneumothorax, or pulmonary vascular congestion. The heart is normal in size. The bones are intact. XR/XR chest 2V IMPRESSION: No acute cardiopulmonary abnormality. Electronically signed by: Stan Hernadez MD 12/25/2024 08:45 AM EDT
[2024-12-24 10:44] LABS: MANUAL DIFF FLAG NO
--- NOTE | 2024-12-24 10:46 | ECG_ITS ---
Test Reason : E66.01 MOR OBS Blood Pressure : */* mmHG Vent. Rate : 62 BPM Atrial Rate : 62 BPM P-R Int : 146 ms QRS Dur : 84 ms QT Int : 434 ms P-R-T Axes : 61 -2 37 degrees QTcB Int : 440 ms Normal sinus rhythm Normal ECG When compared with ECG of 19-Sep-2024 08:19, No significant change was found Referred By: George Arteaga Electronically Signed By: RIAN GAINES MD
[2024-12-24 11:22] LABS: Basophils Absolute Auto 0.1 X10*3/uL (0.0-0.2); Basophils Percent Auto 0.8 % (0-2); Eosinophils Absolute Auto 0.4 X10*3/uL (0.0-0.4); Eosinophils Percent Auto 5.7 % (0-4); Hematocrit 41.9 % (37.0-47.0); Hemoglobin 14.1 g/dl (12.0-16.0); Imm Gran Abs Auto 0.01 X10*3/uL (0.00-0.03); Imm Gran Pct Auto 0.2 % (0.0-0.4); Lymphocytes Absolute Auto 1.8 X10*3/uL (1.2-4.9); Lymphocytes Percent Auto 28.2 % (20-40); Mean Corpuscular HGB Conc 33.7 g/dl (31.0-35.0); Mean Corpuscular Hemoglobin 30.5 pg (27.0-33.0); Mean Corpuscular Volume 90.7 fL (80.0-98.0); Mean Platelet Volume 11.4 fL (9.4-12.3); Monocytes Absolute Auto 0.7 X10*3/uL (0.1-1.2); Monocytes Percent Auto 10.2 % (2-11); Neutrophils Absolute Auto 3.5 x10*3/uL (2.0-8.3); Neutrophils Percent Auto 54.9 % (45-73); Platelet Count 220 X10*3/uL (160-400); Red Blood Count 4.62 X10*6/uL (4.20-5.50); White Blood Count 6.4 X10*3/uL (4.8-10.8)
[2024-12-24 11:33] LABS: Estimated Average Glucose 111 mg/dL; Hemoglobin A1c % 5.5 % (<6.0)
[2024-12-24 11:55] LABS: Alanine Aminotransferase 27 U/L (0-31); Albumin Level 4.2 g/dL (3.5-5.0); Anion Gap 10 (12-20); Aspartate Amino Transferase 24 U/L (5-31); Bilirubin Total 0.4 mg/dL (0.0-1.0); Blood Urea Nitrogen 24 mg/dL (9-16); C Reactive Protein 0.71 mg/dL (< or = 0.50); Calcium 9.7 mg/dL (8.4-10.2); Carbon Dioxide 27 mmol/L (22-29); Chloride 108 mmol/L (96-108); Cholesterol 194 mg/dL (<200); Estimated Glomerular Filt Rate > 60; Glucose Random 102 mg/dL (60-115); HDL Cholesterol 40 mg/dL (>40); Iron 94 mcg/dL (30-160); Percent Iron Saturation 33 % (15-50); Potassium 4.3 mmol/L (3.3-5.1); Sodium 141 mmol/L (135-145); Total Iron Binding Capacity 282 mcg/dL (228-428); Total Protein 7.7 g/dL (6.5-8.0); Unsaturated Iron Binding 188 ug/dL
[2024-12-24 12:21] LABS: Ferritin 223 ng/mL (10-250); Insulin 8 uU/mL (2-29); TSH reflex Free T4 1.43 uIU/mL (0.32-4.0); Vitamin D 25-OH Total 27.1 ng/mL (>30)
[2024-12-24 12:23] LABS: Alkaline Phosphatase 104 U/L (39-117); LDL Cholesterol Calculated 113 mg/dL (<100); Triglycerides 206 mg/dL (<150)
[2024-12-24 12:26] LABS: Folate 16.6 ng/mL (> or = 4.0); Vitamin B12 534 pg/mL (200-900)
[2024-12-27 12:48] LABS: Zinc 78 mcg/dL (60-130)
[2024-12-27 17:03] LABS: Vitamin A 47 mcg/dL (38-98)
[2025-01-01 14:43] LABS: Vitamin B1 8 nmol/L (8-30)
== END 2024-12-24 10:29 | disposition home or self-care (01) ==
LOC: HO.XRAY 10:28
PROVIDERS: PCP Internal Medicine; Visit Provider Surgery
DX: E66.09 Other obesity due to excess calories (principal); Z68.34 Body mass index [BMI] 34.0-34.9, adult; E78.1 Pure hyperglyceridemia; I10 Essential (primary) hypertension
CPT/HCPCS: 36415; 71046; 80053; 80061; 82306; 82607; 82728; 82746; 83036; 83525; 83540; 84425; 84443; 84590; 84630; 85025; 86140; 93005

== ENCOUNTER → 2024-12-24 10:46 | Outpatient (BNV) | payer OTHER, SELFPAY | PROVIDERS: PCP Internal Medicine; Visit Provider Internal Medicine Cardiovascular Disease | DX: E66.01 Morbid (severe) obesity due to excess calories (principal) | CPT/HCPCS: 93010 ==

== ENCOUNTER → 2024-12-24 11:08 | Outpatient (BNV) | payer OTHER, SELFPAY | PROVIDERS: PCP Internal Medicine; Visit Provider Radiology Diagnostic Radiology | DX: E66.09 Other obesity due to excess calories (principal) | CPT/HCPCS: 71046 ==

== ENCOUNTER 2024-12-25 08:49 | Outpatient (REF) | payer OTHER, SELFPAY ==
--- NOTE | ~2024-12-25 | US_ITS ---
EXAMINATION: US ABDOMEN COMPLETE WITH LIVER ELASTOGRAPHY HISTORY: E66.09 - Other obesity due to excess calories TECHNIQUE: Real-time grayscale ultrasound imaging of the abdomen was performed and images were reviewed. COMPARISON: There are no prior studies for comparison. FINDINGS: Liver: The right lobe of the liver measures 11.9 cm in size. The left lobe of the liver measures 9.6 cm in size. The liver demonstrates increased echotexture, consistent with steatosis. No focal mass or intrahepatic biliary ductal dilatation is identified. There is normal hepatopedal flow in the portal vein. Ultrasound elastography of the liver was performed with 10 separate measurements of the liver parenchyma with the patient in the supine position. Measurements were obtained approximately 2 cm below Devaughn's capsule and perpendicular to the capsule. Images are of satisfactory quality. The median shear wave velocity is 1.45 m/s. The interquartile range/median (IQR/median) is 0.14. Gallbladder and biliary tree: There are tiny calcifications in the wall of the gallbladder versus adenomyomatosis. The gallbladder is otherwise unremarkable, without evidence of calculi, wall thickening, or pericholecystic fluid. There is no sonographic Gomez sign. The common bile duct measures 8 mm diameter. Kidneys: The right kidney measures 9.6 cm in length. The left kidney measures 9.6 cm in length. The kidneys are unremarkable, without evidence of masses, hydronephrosis, or calculi. Pancreas: The pancreatic head, neck, and body are unremarkable. The pancreatic tail is obscured by bowel gas. Spleen: The spleen is normal in size and contour, measuring 9.4 cm in length. Abdominal aorta and inferior vena cava: The visualized portions of the abdominal aorta and inferior vena cava are normal in caliber. There is no free fluid in the abdomen. US/US abdomen comp w elastography IMPRESSION: Hepatic steatosis. Gallbladder wall calcification versus adenomyomatosis. The median shear wave velocity in the liver is 1.45 m/s, corresponding to a median liver stiffness of 6.41 kPa. The IQR/median value is 0.14. This is indicative of a quality data set. Findings are indicative of a low elastography value which rules out advanced chronic liver disease in asymptomatic patients. REFERENCE: Society of Radiologists in Ultrasound Liver Stiffness Thresholds (2020): LIVER STIFFNESS THRESHOLDS: *Shear wave velocity less than 1.3 m/s (Liver Stiffness equal or less than 5 kPa): High probability of being normal. *Shear wave velocity less than 1.7 m/s (Liver Stiffness less than 9 kPa): In the absence of other known clinical signs, rules out compensated advanced chronic liver disease. *Shear wave velocity between 1.7-2.1 m/s (Liver Stiffness 9-13 kPa): Suggestive of compensated advanced chronic liver disease but need further test for confirmation. *Shear wave velocity between 2.1-2.4 m/s (Liver Stiffness 13-17 kPa): Rules in compensated advanced chronic liver disease. *Shear wave velocity greater than 2.4 m/s (Liver Stiffness over 17 kPa): Suggestive of clinically significant portal hypertension. QUALITY OF DATA SET: *IQR/Median value equal or less than 0.15 implies a quality data set. *IQR/Median value over 0.15 implies a poor quality data set. SIGNIFICANT CHANGE FROM PRIOR EXAM: Significant change if liver stiffness measurement is 10% or greater from prior exam. OTHER CONSIDERATIONS: The stage of liver fibrosis may be overestimated in the setting of acute hepatitis, liver inflammation, elevated liver function tests, hepatic vascular congestion, obstructive cholestasis, non-fasting state, and infiltrative diseases such as amyloidosis and lymphoma. In some patients with NAFLD, the liver stiffness thresholds for compensated advanced chronic liver disease may be lower. In causes other than viral hepatitis and NAFLD, liver stiffness thresholds are not well established. Electronically signed by: Stan Hernadez MD 12/25/2024 09:54 AM EDT
== END 2024-12-25 08:50 | disposition home or self-care (01) ==
LOC: HO.US 08:49
PROVIDERS: PCP Internal Medicine; Visit Provider Surgery
DX: E66.09 Other obesity due to excess calories (principal); Z68.34 Body mass index [BMI] 34.0-34.9, adult; E78.1 Pure hyperglyceridemia; I10 Essential (primary) hypertension
CPT/HCPCS: 76700; 76981

== ENCOUNTER → 2024-12-25 08:50 | Outpatient (BNV) | payer OTHER, SELFPAY | PROVIDERS: PCP Internal Medicine; Visit Provider Radiology Diagnostic Radiology | DX: R16.0 Hepatomegaly, not elsewhere classified (principal) | CPT/HCPCS: 76981 ==

== ENCOUNTER 2025-01-10 14:23 | Outpatient (REF) | payer OTHER, SELFPAY ==
[2025-01-11 13:50] LABS: Bacterial Vaginosis PCR POSITIVE (Negative); Candida Group PCR DETECTED (Not Detect); Candida glab krusei PCR NOT DETECTED (Not Detect); Trichomonas vaginalis PCR NOT DETECTED (Not Detect)
[2025-01-11 14:19] LABS: CT PCR NOT DETECTED (Not Detect.); NG PCR NOT DETECTED (Not Detect.)
== END 2025-01-10 14:24 | disposition home or self-care (01) ==
LOC: HO.LAB 14:23
PROVIDERS: PCP Internal Medicine; Visit Provider Advanced Practice Midwife
DX: Z01.419 Encounter for gynecological examination (general) (routine) without abnormal findings (principal); N89.8 Other specified noninflammatory disorders of vagina; Z87.42 Personal history of other diseases of the female genital tract; N87.0 Mild cervical dysplasia; E66.811 Obesity, class 1; Z68.33 Body mass index [BMI] 33.0-33.9, adult; Z20.2 Contact with and (suspected) exposure to infections with a predominantly sexual mode of transmission
CPT/HCPCS: 36415; 81515; 86780; 86803; 87340; 87389; 87491; 87591; 87626; 88175; 99396; 99459

== ENCOUNTER 2025-01-10 14:23 | Outpatient (AMB) | payer OTHER, SELFPAY ==
[2025-01-10 14:44] VITALS: BP 120/68; BMI 33.1
--- NOTE | 2025-01-10 14:44 | A.OFFVIS_ITS ---
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 Claims Support Specialist Services: Claims Support Specialist Present Information Interpreted: clinical only Regulatory Submissions Specialist: Regulatory Submissions Specialist Present Allergies aspirin [ASPIRIN] Allergy (Intermediate, Verified 01/10/25 14:54) SWELLING Medication List - Last Reconciled 01/10/25 by Destiny Mix CNM amlodipine 2.5 mg PO DAILY blood pressure monitor As directed cholecalciferol (vitamin D3) 25 mcg PO DAILY 90 days cyclobenzaprine 10 mg PO TID PRN 30 days ibuprofen 800 mg PO TID PRN 30 days loratadine 10 mg PO DAILY PRN 90 days Is last menstrual period known: No HPI HPI 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 She has a history of abnormal Paps and LEEP in the past. She sees Dr. Lock for primary care she has been working on weight loss and is feeling very good could she has lost weight she has been trying to eat less and healthy and do exercise she does it in her house. She has no particular worries about STDs but is interested in getting tested for everything. She is sexually active with her partner. she had a history of a tubal ligation. She gets her mammograms every year and had 1 recent [facility] Medical History Seasonal allergic rhinitis due to pollen Headache Skin tag Mild recurrent major depression Physical exam Dysplasia of cervix, low grade (CALEB 1) Sacroiliitis Obese Sacral pain Shoulder bursitis Back pain GERD (gastroesophageal reflux disease) Constipation Depression Sinusitis Surgical History H/O LEEP History of tubal ligation Family History Father No problems noted. Mother CVD (cardiovascular disease) Paternal Grandmother CVD (cardiovascular disease) Paternal Uncle Leukemia Sister In good health Son In good health Son In good health Daughter In good health Daughter In good health Father Diabetes HTN (hypertension) Mother CVD (cardiovascular disease) Paternal Uncle Leukemia Paternal Grandmother CVD (cardiovascular disease) Maternal Grandmother No problems noted. Maternal Grandfather No problems noted. Social History (Updated 09/19/24 @ 07:53 by Rayne Koo MD) Housing: Apartment Alcohol intake: former Patient Tobacco Use Status: Never used Tobacco Years Smoked: 1 year e-Cigarette/Vaping Use: Never Used Second Hand Smoke Exposure: No service: No Current occupational status: unemployed Gender identity: Female Cognitive needs: No Hearing needs: No Vision needs: No Female Reproductive History Menstrual Age of Menarche: 12 control method: permanent sterilization Total pregnancies: 4 Full term: 4 Date of last pap smear: 10/13/23 (negative) History of abnormal pap smear: Yes (2019 CALEB !) Assessment & Plan Assessment & Plan (1) Dysplasia of cervix, low grade (CALEB 1): Comment: Persistent since 2018 s/p LEEP in 11/24 Code(s): N87.0 - Mild cervical dysplasia Category: Medical (2) Well woman exam with routine gynecological exam: Code(s): Z01.419 - Encounter for gynecological examination (general) (routine) without abnormal findings Category: Medical (3) History of abnormal cervical Pap smear: Code(s): Z87.42 - Personal history of other diseases of the female genital tract Category: Medical (4) Class 1 obesity with body mass index (BMI) of 33.0 to 33.9 in adult: Code(s): E66.811 - Obesity, class 1; Z68.33 - Body mass index [BMI] 33.0-33.9, adult Category: Medical (5) Potential exposure to STD: Code(s): Z20.2 - Contact with and (suspected) exposure to infections with a predominantly sexual mode of transmission Category: Medical Plan -----Discussed in this visit the following: healthy balanced diet, regular and consistent exercise, getting recommended health screens, doing the best she can for her particular health concerns, kegel exercises, pap smear screening and followup recommendations, mammography screening and SBE, normal changes in cycles in her life stage--- . I congratulated her on her losing weight and trying to be healthier. Pap smear was done today as well as testing for gonorrhea chlamydia trichomoniasis Gricelda and BV. I offered the patient to also get lab work and she said she would like to so labs ordered for HIV hep B hep C and syphilis. RTC 1 year unless she has any issues. Orders: Orders Hepatitis C Antibody Today E66.811 - Obesity, class 1, N87.0 - Mild cervical dysplasia, Z01.419 - Encounter for gynecological examination (general) (routine) without abnormal findings, Z20.2 - Contact with and (suspected) exposure to infections with a predominantly sexual mode of transmission, Z68.33 - Body mass index [BMI] 33.0-33.9, adult, Z87.42 - Personal history of other diseases of the female genital tract HIV Ab/Ag Today E66.811 - Obesity, class 1, N87.0 - Mild cervical dysplasia, Z01.419 - Encounter for gynecological examination (general) (routine) without abnormal findings, Z20.2 - Contact with and (suspected) exposure to infections with a predominantly sexual mode of transmission, Z68.33 - Body mass index [BMI] 33.0-33.9, adult, Z87.42 - Personal history of other diseases of the female genital tract Syphilis Screen Today E66.811 - Obesity, class 1, N87.0 - Mild cervical dysplasia, Z01.419 - Encounter for gynecological examination (general) (routine) without abnormal findings, Z20.2 - Contact with and (suspected) exposure to infections with a predominantly sexual mode of transmission, Z68.33 - Body mass index [BMI] 33.0-33.9, adult, Z87.42 - Personal history of other diseases of the female genital tract Hepatitis B Surface Antigen Today E66.811 - Obesity, class 1, N87.0 - Mild cervical dysplasia, Z01.419 - Encounter for gynecological examination (general) (routine) without abnormal findings, Z20.2 - Contact with and (suspected) exposure to infections with a predominantly sexual mode of transmission, Z68.33 - Body mass index [BMI] 33.0-33.9, adult, Z87.42 - Personal history of other diseases of the female genital tract Coding Level of Care Code Est Pt Prev Care 40-64y(49573) Diagnoses Dysplasia of cervix, low grade (CALEB 1) N87.0 Well woman exam with routine gynecological exam Z01.419 History of abnormal cervical Pap smear Z87.42 Class 1 obesity with body mass index (BMI) of 33.0 to 33.9 in adult E66.811; Z68.33 Potential exposure to STD Z20.2
--- OUTSIDE RECORDS SUMMARY | 2025-01-10 17:08 | XMS_ITS | Clinical Summary ---
Author Organization [employer] Address [address] [place] [address] [address] [place] [address] Care Team Providers Care Can Line Examiner Name Role Phone Unavailable Primary Care Provider [...] 1971 Sigmoidoscopy 1971 Alcohol/Substance Use Screening 1983 Hepatitis C Screening 12/30/1989 Hepatitis B Vaccines [...] 12/30/2021 Tobacco Screening 04/27/2024 04/27/2023 COVID-19 Vaccine (4 - season) 2024 07/02/2021, 12/04/2020, 11/11/2020 Influenza [...] Most Recently Relevant to Health Maintenance Insurance [facility] MEDICAID STAND ADULT
== END 2025-01-10 16:05 | disposition home or self-care (01) ==
PROVIDERS: PCP Internal Medicine; Visit Provider Advanced Practice Midwife
DX: Z01.419 Encounter for gynecological examination (general) (routine) without abnormal findings (principal); N87.0 Mild cervical dysplasia; E66.811 Obesity, class 1; Z68.33 Body mass index [BMI] 33.0-33.9, adult
CPT/HCPCS: 99396; 99459

== ENCOUNTER 2025-01-10 15:22 | Outpatient (REF) | payer OTHER, SELFPAY ==
--- OUTSIDE RECORDS SUMMARY | 2025-01-10 17:43 | XMS_ITS | Clinical Summary ---
Author Organization [employer] Address [address] [place] [address] [address] [place] [address] Care Team Providers Care Assistant Media Planner Name Role Phone Unavailable Primary Care Provider [...] Most Recently Relevant to Health Maintenance Insurance [facility] MEDICAID STAND ADULT
[2025-01-11 03:49] LABS: Syphilis Screen Nonreactive (Nonreactive)
[2025-01-11 04:40] LABS: HBsAGNum1 0.26 S/CO (0.00-0.99); HIV AB/AG Nonreactive (Nonreactive); HIV Num 1 0.07 S/CO (0.00-0.99); Hepatitis B Surface Antigen Negative (Negative); ~HepC Num1 0.07 S/CO (0.00-0.79); ~Hepatitis C Antibody Nonreactive (Nonreactive)
== END 2025-01-10 15:23 | disposition home or self-care (01) ==
LOC: HO.HHCL 15:22
PROVIDERS: Visit Provider Advanced Practice Midwife
DX: Z13.89 Encounter for screening for other disorder (principal)
CPT/HCPCS: 36415; 86780; 86803; 87340; 87389; 99396; 99459

== ENCOUNTER 2025-01-10 16:46 | Outpatient (REF) | payer OTHER, SELFPAY ==
[2025-01-17 10:29] LABS: HPV Genotype 16 Negative (Negative); HPV Genotype 18 Negative (Negative); HPV High Risk Negative (Negative)
== END 2025-01-10 16:47 | disposition home or self-care (01) ==
LOC: HO.LNP 16:46
PROVIDERS: Visit Provider Advanced Practice Midwife
DX: Z13.89 Encounter for screening for other disorder (principal)
CPT/HCPCS: 87626; 88175

== ENCOUNTER 2025-01-22 14:52 | Outpatient (AMB) | payer OTHER, SELFPAY ==
--- NOTE | 2025-01-22 14:54 | A.OFFPC_ITS ---
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 Required: No Accompanied by: Self / Same As Patient Allergies aspirin [ASPIRIN] Allergy (Intermediate, Verified 01/22/25 15:06) SWELLING Medication List - Last Reconciled 01/22/25 by Rayne Koo MD amlodipine 2.5 mg PO DAILY blood pressure monitor As directed cholecalciferol (vitamin D3) 25 mcg PO DAILY 90 days cyclobenzaprine 10 mg PO TID PRN 30 days ibuprofen 800 mg PO TID PRN 30 days loratadine 10 mg PO DAILY PRN 90 days Tobacco use date assessed: 01/22/25 Dental Screening Dental Screen Date: 01/22/25 Did you have a dental visit in the last 12 months?: No Did you have a dental problem in the last 6 months where you did not have access to dental care?: No Was dental information given to patient?: Yes HPI HPI Comments History of Present Illness Details The patient is a 54-year-old female presenting for her annual physical examination and review of recent laboratory results. Her medical history prominently includes Class 1 obesity, with significant weight loss achieved through lifestyle changes. She has hyperlipidemia with recent lab results indicating slightly elevated cholesterol and triglycerides levels. Vitamin D levels are noted to be below normal, and she is currently managing hypertension with low-dose Amlodipine. Gynecologically, the patient previously underwent LEEP due to a history of squamous intraepithelial lesions. New concerns arise from results of a recent Papanicolaou test, revealing a Gricelda infection and bacterial vaginosis. The patient is symptomatic with episodes of itching, creamy discharge, and a mild fishy odor discharge. She denies any aggravating involvement of sexual activity and reports hesitancy towards further surgical interventions, instead favoring weight loss through diet and exercise. - Tetanus vaccine administered in 2017, next due in 2027 - Mammography conducted in November - Papanicolaou test completed this year - Colonoscopy performed in 2022, follow- up recommended in 2027 due to previous adenomatous polyps - Discussed weight management through li festyle changes, with focus on intermittent fasting - Reinforced cardiovascular health strat egies, including cholesterol monitoring and potential adjustments to lipid management strategies [facility] Medical History (Updated 01/22/25 @ 15:23 by Rayne Koo MD) Seasonal allergic rhinitis due to pollen Headache Skin tag Mild recurrent major depression Physical exam Dysplasia of cervix, low grade (CALEB 1) Sacroiliitis Obese Sacral pain Shoulder bursitis Back pain GERD (gastroesophageal reflux disease) Constipation Depression Sinusitis Surgical History H/O LEEP History of tubal ligation Family History Father No problems noted. Mother CVD (cardiovascular disease) Paternal Grandmother CVD (cardiovascular disease) Paternal Uncle Leukemia Sister In good health Son In good health Son In good health Daughter In good health Daughter In good health Father Diabetes HTN (hypertension) Mother CVD (cardiovascular disease) Paternal Uncle Leukemia Paternal Grandmother CVD (cardiovascular disease) Maternal Grandmother No problems noted. Maternal Grandfather No problems noted. Social History Housing: Apartment Alcohol intake: former Patient Tobacco Use Status: Never used Tobacco Years Smoked: 1 year e-Cigarette/Vaping Use: Never Used Second Hand Smoke Exposure: No service: No Current occupational status: unemployed Gender identity: Female Cognitive needs: No Hearing needs: No Vision needs: No Female Reproductive History Menstrual Age of Menarche: 12 Questionnaire PHQ-9 Over the last 2 weeks, how often have you been bothered by any of the following problems? 1. Little interest or pleasure in doing things: not at all 2. Feeling down, depressed, or hopeless: several days 3. Trouble falling or staying asleep, or sleeping too much: several days 4. Feeling tired or having little energy: not at all 5. Poor appetite or overeating: not at all 6. Feeling bad about yourself - or that you are a failure or have let yourself or your family down: not at all 7. Trouble concentrating on things, such as reading the newspaper or watching television: not at all 8. Moving or speaking so slowly that other people could have noticed. Or the opposite - being so fidgety or restless that you have been moving around a lot more than usual: not at all 9. Thoughts that you would be better off or of hurting yourself in some way: not at all Total score: 2 Depression Screening Interpretation: Negative Depression Screening Done: Yes 38283 - PHQ-9 Billing: Yes Source: Developed by Drs. Stan Franco, Rain Mckinney, Martinez Marte and colleagues, with an educational jody from [employer]. Thrive Questionnaire Date Thrive assessed: 01/15/25 I am a: Patient What is your living situation today?: I have a steady place to live Within the past 12 months, did the food you bought not last and you didn't have the money to get more?: Sometimes True Within the past 12 months, did you worry whether your food would run out before you got money to buy more?: Sometimes True Do you have trouble paying for medicines?: Yes Do you have trouble getting transportation to medical appointments?: No Do you have trouble paying your heating and electricity bill?: No Do you have trouble taking care of your child, family member or friend?: No Do you have trouble with day-to-day activities such as bathing, preparing meals, shopping, managing finances, etc.?: No Are you currently unemployed and looking for a job?: Yes Are you interested in more education?: I choose not to answer this question Please select the resources that you would like help with: Job search/training Currently or been in a relationship where the following occur: No concerns reported THRIVE Score: 2 AUDIT C Alcohol Use Questionnaire (AUDIT-C) 1. How often do you have a drink containing alcohol?: Never Total Score: 0 Score Reviewed/Action Taken: No TUAN-7 AMB Questionnaire TUAN-7 Date TUAN - 7 assessed: 01/22/25 Feeling nervous, anxious, or on edge: 1 = Several days Not being able to stop or control worryin = Several days Worrying too much about different things: 1 = Several days Trouble relaxin = Not at all Being so restless that it is hard to sit still: 0 = Not at all Becoming easily annoyed or irritable: 1 = Several days Feeling afraid as if something awful might happen: 1 = Several days Total TUAN-7 score (0-4 normal; 5-9 mild; 10-14 moderate; 15-21 severe): 5 Source: Developed by Rain Daily, Martinez Marte and colleagues, with an educational jody from [employer]. TUAN-7 Assessment Billing TUAN-7 Assessment Tool: TUAN-7 Assessment 92143 Review of Systems Const All systems reviewed & are unremarkable except as noted in HPI and below Card Denies chest pain at rest, Denies chest pain with activity, Denies edema, Denies irregular heart rhythm, Denies claudication, Denies dyspnea, Denies dyspnea on exertion, Denies orthopnea, Denies paroxysmal nocturnal dyspnea and Denies slow heart rate Resp Denies cough, Denies dyspnea and Denies dyspnea on exertion Musc Denies abnormal gait, Denies atrophy, Denies deformity and Denies limited range of motion Skin/Breast Denies bleeding lesions, Denies changing lesions and Denies rash Neuro Denies abnormal gait and Denies lack of coordination Physical exam (Primary Care) Vital Signs: Last Vital Signs BP 124/72 01/22/25 14:56 BMI result Body Mass Index 32.2 BMI Assessment/Plan discussion: High BMI High, discussed plan: lifestyle, weight reduction, dietary and physical activity Tobacco/Smoking Status: Tobacco use Status Tobacco use date assessed 01/22/25 01/22/25 15:00 Patient Tobacco Use Status Never used Tobacco 01/22/25 15:00 Tobacco use type 11/08/22 10:35 e-Cigarette/Vaping Use Never Used 01/22/25 15:00 PHQ-9: PHQ-9 Score PHQ-9: Total score 2 01/22/25 15:00 Depression Screening Interpretation: Negative Thrive Assessment: Date of Thrive Assessment Date Thrive assessed 01/15/25 01/22/25 15:00 Currently or been in a relationship where the following occur: No concerns reported [facility] Head: Yes normal to inspection, Yes normocephalic and Yes atraumatic Ears: external ears normal Eyes General: appearance normal, both eyes and all related structures Eyelids: Yes eyelids normal Conjunctivae: conjunctivae normal Neck Neck: Yes normal visual inspection and Yes supple Resp Effort & Inspection: normal respiratory effort Auscultation: clear to auscultation bilaterally Cardio Jugular venous distension: no JVD Rate: regular rate Rhythm: regular rhythm Heart sounds: S1 normal heart sound present and S2 normal heart sound present GI Inspection: Yes normal to inspection Palpation (GI): Soft to palpation and nontender Auscultation: normal bowel sounds Skin General skin exam: no rashes or lesions noted Neuro General: no focal motor deficits Extrem General: Yes full ROM Psych Appearance: grossly normal Coding Level of Care Code Est Pt Level 3 (40834) Est Pt Prev Care 40-64y(21233) Diagnoses Physical exam Z00.00 Vaginal candidiasis B37.31 Bacterial vaginosis N76.0; B96.89 Additional Codes PHQ-9 - 73700 - PHQ-9 Billing: Yes ([id number]) TUAN-7 Assessment Billing - TUAN-7 Assessment Tool: TUAN-7 Assessment 45552 ([id number]) Time Spent (min) 32 Assessment & Plan Assessment & Plan (1) Physical exam: Code(s): Z00.00 - Encounter for general adult medical examination without abnormal findings Category: Medical (2) Vaginal candidiasis: Code(s): B37.31 - Acute candidiasis of vulva and vagina Category: Medical (3) Bacterial vaginosis: Code(s): N76.0 - Acute vaginitis; B96.89 - Other specified bacterial agents as the cause of diseases classified elsewhere Category: Medical Plan The treatment plan targets hyperlipidemia highlighted by recent lab results, advocating dietary changes to manage elevated lipid levels and considering pharmacotherapy if improvements are not observed. Vitamin D deficiency will be addressed through supplementation. Existing hypertension is appropriately managed with Amlodipine, maintaining its current regimen. The infections identified by Papanicolaou test, Gricelda, and bacterial vaginosis, will be treated with prescribed antifungal and antibiotic medications, respectively. I recommended continuous lifestyle modifications to support ongoing weight loss, discouraging surgical weight loss methods. Monitoring lipid levels remains crucial to the cardiovascular health strategy. Patient was informed and verbally consented to the use of an ambient scribe for clinic note documentation during this visit. I thoroughly reviewed with the patient her current medical conditions and treatment options, particularly focusing on her lipid profile, vitamin D, and gynecological findings. We discussed the benefits of treating hyperlipidemia to reduce cardiovascular risk and the utility of vitamin D in osteoporosis prevention. Regarding the Gricelda and bacterial vaginosis identified in the Papanicolaou test, I highlighted the treatment regimen, potential symptoms to monitor, and precautions to prevent recurrence. Medications: New clindamycin phosphate 100 mg vaginal BEDTIME 3 days 3 ea 0RF fluconazole 150 mg PO Q3D 2 tabs 0RF Patient Instructions: - Continue current medication regimen - Begin vitamin D supplementation as advised - Follow the prescribed regimen for the treatment of Gricelda and bacterial vaginosis infections - Engage in recommended lifestyle modifications to manage weight and support health - Monitor lipid levels as advised in follow-up appointments - Report any adverse reactions to prescribed treatments immediately
[2025-01-22 14:56] VITALS: BP 124/72; BMI 32.2
--- OUTSIDE RECORDS SUMMARY | 2025-01-22 17:46 | XMS_ITS | Clinical Summary ---
Author Organization [employer] Address [address] [place] [address] [address] [place] [address] Care Team Providers Care Squilgeer Name Role Phone Unavailable Primary Care Provider [...] Most Recently Relevant to Health Maintenance Insurance [facility] MEDICAID STAND ADULT
== END 2025-01-22 15:24 | disposition home or self-care (01) ==
LOC: HO.HMCH 14:53
PROVIDERS: PCP Internal Medicine; Visit Provider Internal Medicine
DX: Z00.00 Encounter for general adult medical examination without abnormal findings (principal); B37.31 Acute candidiasis of vulva and vagina; N76.0 Acute vaginitis; B96.89 Other specified bacterial agents as the cause of diseases classified elsewhere

== ENCOUNTER → 2025-01-22 14:52 | Outpatient (BNVA) | payer OTHER, SELFPAY | PROVIDERS: PCP Internal Medicine; Visit Provider Internal Medicine | DX: Z00.01 Encounter for general adult medical examination with abnormal findings (principal); B37.31 Acute candidiasis of vulva and vagina; N76.0 Acute vaginitis; B96.89 Other specified bacterial agents as the cause of diseases classified elsewhere; I10 Essential (primary) hypertension; Z79.899 Other long term (current) drug therapy | CPT/HCPCS: 96127; 99212; 99396 ==